=== PATIENT | female | born 1955 | race Caucasian/White ===

== ENCOUNTER 2016-06-13 14:11 | Emergency (ER) | payer OTHER ==
--- NOTE | 2016-06-13 14:58 | ED ---
Extremity Problem HPI - General Chief complaint: Extremity Problem,Nontraumatic Stated complaint: HIP Pain Time Seen by Provider: 06/13/16 14:45 Source: patient Mode of arrival: wheelchair Limitations: no limitations - History of Present Illness Initial comments: Patient is a 52-year-old female chief complaint of chronic left hip pain. Patient reports that over the past 2 weeks the pain is gotten much more severe. She denies any specific injury. She reports that she feels a grinding sensation whenever she bears weight over her leg. She states that she's had a history of osteoarthritis in her knees and received steroid injection in both of her knees by Dr. Styles. She reports that she has pain mainly over the inside of her hip and has difficulty lifting her leg due to pain. She reports no right-sided hip pain and denies any back pain. She states that she takes tramadol and Mobic for her history of fibromyalgia however this does not help with the pain. Patient reports that she was trying to follow-up with her primary care provider however she was unable to be seen by them today. He denies any peripheral paresthesias, saddle anesthesia, dysuria or hematuria or changes in bowel habits.Patient denies any recent fever, chills, shortness of breath, chest pain, back pain, abdominal pain, nausea vomiting, numbness or tingling, dysuria or hematuria, constipation or diarrhea, headaches or visual changes, or any other current symptoms - Related Data Home Medications Medication Instructions Recorded Confirmed Hydrochlorothiazide 25 mg PO DAILY 08/10/14 05/11/15 Metoprolol Tartrate [Lopressor] 25 mg PO DAILY 08/10/14 05/11/15 Previous Rx's Medication Instructions Recorded Azelastine HCl [Astepro] 2 sprays INTRANASAL BID #1 bottle 05/12/15 Diazepam [Valium] 2 mg PO QID #20 tab 05/12/15 Fluticasone Nasal [place] [Flonase 2 spr EA NOSTRIL DAILY #1 bottle 05/12/15 Nasal [place]] Levofloxacin [Levaquin] 500 mg PO DAILY #10 tab 05/12/15 Meclizine [Antivert] 25 mg PO TID PRN #20 tab 05/12/15 Ondansetron [Zofran ODT] 8 mg PO Q8HR PRN #12 tab 05/12/15 HYDROcodone/APAP 5-325MG [Brook 1 tab PO Q4HR PRN #15 tab 06/13/16 5-325] Allergies Allergy/AdvReac Type Severity Reaction Status Date / Time Penicillins Allergy Unknown Verified 06/13/16 14:35 Review of Systems ROS Statement: Those systems with pertinent positive or pertinent negative responses have been documented in the HPI. ROS Other: All systems not noted in ROS Statement are negative. Past Medical History Past Medical History: Fibromyalgia, Hypertension, Osteoarthritis (OA) Additional Past Medical History / Comment(s): joint pain History of Any Multi-Drug Resistant Organisms: None Reported Past Surgical History: Appendectomy, Cholecystectomy, Orthopedic Surgery, Tubal Ligation Past Psychological History: No Psychological Hx Reported Smoking Status: Former smoker Past Alcohol Use History: None Reported Past Drug Use History: None Reported General Exam - General Exam Comments Initial Comments: Patient is a pleasant 52-year-old female. She does not appear to be in any acute distress. Limitations: no limitations General appearance: alert, in no apparent distress Head exam: Present: atraumatic, normocephalic, normal inspection Eye exam: Present: normal appearance, PERRL, EOMI. Absent: scleral icterus, conjunctival injection, periorbital swelling ENT exam: Present: normal exam, mucous membranes moist Neck exam: Present: normal inspection. Absent: tenderness, meningismus, lymphadenopathy Respiratory exam: Present: normal lung sounds bilaterally. Absent: respiratory distress, wheezes, rales, rhonchi, stridor Cardiovascular Exam: Present: regular rate, normal rhythm, normal heart sounds. Absent: systolic murmur, diastolic murmur, rubs, gallop, clicks GI/Abdominal exam: Present: soft, normal bowel sounds. Absent: distended, tenderness, guarding, rebound, rigid Extremities exam: Present: normal inspection, full ROM, normal capillary refill. Absent: tenderness, pedal edema, joint swelling, calf tenderness Left Hip exam: Present: normal inspection. Absent: full ROM (She reports increased pain with internal rotation.), tenderness, swelling, abrasion, laceration, ecchymosis, deformity, crepitus, dislocation Upper Leg exam: Present: normal inspection, full ROM Knee exam: Present: normal inspection, full ROM Lower Leg exam: Present: normal inspection, full ROM Ankle exam: Present: normal inspection, full ROM Neurovascular tendon exam: Present: no vascular compromise Gait: observed and limited by pain Back exam: Present: normal inspection, full ROM Neurological exam: Present: alert, oriented X3, CN II-XII intact Psychiatric exam: Present: normal affect, normal mood Skin exam: Present: warm, dry, intact, normal color. Absent: rash Course Vital Signs 06/13/16 06/13/16 14:33 15:51 Temperature 98.8 F 96.8 F L Pulse Rate 83 91 Respiratory 16 18 Rate Blood Pressure 139/76 170/74 O2 Sat by Pulse 97 96 Oximetry Medical Decision Making - Medical Decision Making Patient is a 52-year-old female with chronic left hip pain presenting with increased pain over the past 2 weeks. She denies any specific injury. X-ray shows significant arthritic changes as well as a possible sclerosis over the femoral neck. Radiologist recommended a CT of the hip. CT of the hip is obtained. Patient was also given 1 IM of Dilaudid for pain. Patient's x-ray showed the possibility of having a fracture. They recommended CT. CT was completed and shows significant osteoarthritis. Patient will be instructed to take at home anti-inflammatory medication as she is 30 done. I will write the patient for 10 5 mg of Brook No. 15 to only use when pain is severe. I advised her to follow up with primary care provider tomorrow. Return parameters were discussed. They understand treatment plan will comply. - Radiology Data Radiology results: report reviewed Post arthritic changes of findings suggestive of femorial acetabular impingement. The linear band of sclerosis along the left subcapital region of the femoral neck. There is concerned of a fracture. Radiologist suggests to correlate with a computed tomography scan of the left hip. This was read by Dr. Taveras. There is marginal spurring and joint space loss, subchondral Roque formation as noted on plain film. No sizable joint effusion. Vacuum phenomenon present at the sacroiliac joint on the left. No fracture or dislocation. The impression is osteoarthritis. This was read by Dr. Freeman. Disposition Clinical Impression: Arthritis of left hip Disposition: HOME SELF-CARE Condition: Good Instructions: Osteoarthritis (ED), Hip Sprain (ED) Additional Instructions: Patient advised to rest, and ice hip is much as possible. Also apply heating pad as well. Follow-up with orthopedic physician. Return to the if any alarming signs or symptoms occur. Continue to take anti-inflammatory medication such as Mobic and tramadol for pain. Patient advised to use the other pain medication only as needed for when the pain is extremely severe. Follow-up with primary care provider is well within the next 1-2 days. Prescriptions: HYDROcodone/APAP 5-325MG [Brook 5-325] 1 tab PO Q4HR PRN #15 tab PRN Reason: Pain Referrals: Alisa Castro MD [Primary Care Provider] - 1-2 days Time of Disposition: 16:13
--- NOTE | 2016-06-13 15:15 | XR ---
EXAMINATION TYPE: XR Hip LT and AP Pelvis DATE OF EXAM: 06/13/2016 3:10 PM COMPARISON: NONE HISTORY: Pain TECHNIQUE: A single AP view of the pelvis is obtained. Two views of the left hip are obtained. FINDINGS: There is no acute fracture/dislocation evident in the pelvis. Hypertrophic change and mild narrowing of the hip joints noted. There appears to be a linear band across the subcapital region of the left femoral neck. No focal lytic or sclerotic lesion seen in the proximal left femur. The over lying soft tissue is unremarkable. IMPRESSION: 1. Post arthritic changes with findings suggestive of femoral acetabular impingement. 2. Linear band of sclerosis along the left subcapital region of the femoral neck. There is concern fo r fracture correlate with CT scan of the left hip.
[2016-06-13] MEDS ORDERED: HYDROmorphone 1 MG/ML 1 ML SYRINGE IM STA (15:22)
[2016-06-13 15:52] VITALS: BP 170/74; PULSE 91; RESP 18; TEMP 96.8
--- NOTE | 2016-06-13 16:08 | CT ---
EXAMINATION TYPE: CT hip LT wo con DATE OF EXAM: 06/13/2016 3:44 PM COMPARISON: Left hip and pelvis same date HISTORY: Left hip pain, groin region, x 3 days[address] No known injury. CT DLP: 911.00 mGycm Automated exposure control for dose reduction was used. Helical imaging through the pelvis, coronal a nd sagittal reconstructions FINDINGS: There is marginal spurring and joint space loss, subchondral geode formation as noted on plain film. No sizable joint effusion. Vacuum phenomenon present at the sacroiliac joint on the left. No fracture or dislocation. IMPRESSION: OSTEOARTHRITIS.
== END 2016-06-13 16:25 | disposition home or self-care (01) ==
LOC: EC 14:11
DX: S73.102A Unspecified sprain of left hip, initial encounter (principal); M16.12 Unilateral primary osteoarthritis, left hip; M79.7 Fibromyalgia; I10 Essential (primary) hypertension; Z87.891 Personal history of nicotine dependence; Z79.899 Other long term (current) drug therapy; Z88.0 Allergy status to penicillin; Z98.890 Other specified postprocedural states; X58.XXXA Exposure to other specified factors, initial encounter
CPT/HCPCS: 99284; 96372; 73502; 73700; J1170

== ENCOUNTER → 2016-07-05 | Outpatient (CLI) | payer OTHER ==
--- NOTE | 2016-07-05 14:33 | NM ---
EXAMINATION TYPE: NM bone/joint limited DATE OF EXAM: 07/05/2016 2:12 PM COMPARISON: NONE HISTORY: M25.552 Pain in lt hip TECHNIQUE: After the intravenous administration of 25.1 mCi Tc 99m MDP. Images acquired 3 hours pos t injection. Multiple views of the pelvis and hips are submitted. There is a small focal area of increased radiotracer accumulation left superior acetabular rim which appears degenerative in nature. There is also vague increased uptake seen about the left femoral head which may also be degenerative in nature. No additional abnormal uptake seen. Degenerative uptake se en about the lumbar spine. IMPRESSION: Probable degenerative uptake about the left hip as noted above without intense focus to s uggest fracture or osseous lesion.
== END | disposition home or self-care (01) ==
LOC: RADNMMAIN 10:38
PROVIDERS: ATTEND Orthopaedic Surgery
DX: M16.12 Unilateral primary osteoarthritis, left hip (principal)
CPT/HCPCS: 78300; A9503

== ENCOUNTER 2018-01-17 14:05 | Emergency (ER) | payer OTHER ==
[2018-01-17 14:32] VITALS: BP 140/87; PULSE 90; RESP 18; TEMP 98.5
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
== END 2018-01-17 15:14 | disposition home or self-care (01) ==
LOC: EC 14:05
DX: S96.911A Strain of unspecified muscle and tendon at ankle and foot level, right foot, initial encounter (principal); S93.401A Sprain of unspecified ligament of right ankle, initial encounter; M79.7 Fibromyalgia; I10 Essential (primary) hypertension; M19.90 Unspecified osteoarthritis, unspecified site; Z87.891 Personal history of nicotine dependence; Z79.1 Long term (current) use of non-steroidal anti-inflammatories (NSAID); Z79.899 Other long term (current) drug therapy; Z88.0 Allergy status to penicillin; W19.XXXA Unspecified fall, initial encounter; Y92.009 Unspecified place in unspecified non-institutional (private) residence as the place of occurrence of the external cause
CPT/HCPCS: 29515; 99283

== ENCOUNTER → 2018-11-25 | Outpatient (CLI) | payer OTHER ==
--- NOTE | 2018-11-26 18:22 | ECHOF ---
Referral Reason:R60.0 localized edema MEASUREMENTS -------- HEIGHT: 170.2 cm WEIGHT: 124.7 kg BP: IVSd: 1.2 cm (0.6 - 1.1) LVIDd: 4.5 cm (3.9 - 5.3) LVPWd: 1.0 cm (0.6 - 1.1) IVSs: 1.3 cm LVIDs: 3.1 cm LVPWs: 0.9 cm LA Diam: 3.2 cm (2.7 - 3.8) LAESV Index (A-L): 14.27 ml/m Ao Diam: 3.1 cm (2.0 - 3.7) AV Cusp: 2.0 cm (1.5 - 2.6) LA Diam: 4.2 cm (2.7 - 3.8) MV E Raymond: 0.53 m/s MV DecT: 239 ms MV A Raymond: 0.78 m/s MV E/A Ratio: 0.67 RAP: 5.00 mmHg RVSP: 25.78 mmHg FINDINGS -------- Sinus rhythm. This was a technically adequate study. Morbid Obesity LV size, wall thickness and systolic function are normal, with an EF greater than 55%. The left cindy tricular size is normal. The right ventricle is normal in size. The left atrial size is normal. The right atrial size is normal. The aortic valve is trileaflet, and appears structurally normal. No aortic stenosis or regurgitation. Mild mitral regurgitation is present. Mild tricuspid regurgitation present. There is no evidence of pulmonary hypertension. The right v entricular systolic pressure, as measured by Doppler, is 25.78mmHg. The pulmonic valve was not well visualized. The aortic root size is normal. There is no pericardial effusion. CONCLUSIONS -------- 1. Morbid Obesity 2. LV size, wall thickness and systolic function are normal, with an EF greater than 55%. 3. The left ventricular size is normal. 4. The right ventricle is normal in size. 5. The left atrial size is normal. 6. The right atrial size is normal. 7. The aortic valve is trileaflet, and appears structurally normal. No aortic stenosis or regurgitati on. 8. Mild mitral regurgitation is present. 9. Mild tricuspid regurgitation present. 10. There is no evidence of pulmonary hypertension. 11. The right ventricular systolic pressure, as measured by Doppler, is 25.78mmHg. 12. The pulmonic valve was not well visualized. 13. The aortic root size is normal. 14. There is no pericardial effusion. [employer]AYOUT DESIGNER: Tami Mai RDCS
== END | disposition home or self-care (01) ==
LOC: RADECHMAIN 13:55
PROVIDERS: ATTEND Physician Assistant
DX: E66.01 Morbid (severe) obesity due to excess calories (principal); I08.1 Rheumatic disorders of both mitral and tricuspid valves
CPT/HCPCS: 93306

== ENCOUNTER 2019-12-26 16:20 | Emergency (ER) | payer OTHER ==
[2019-12-26 16:41] VITALS: RESP 18
[2019-12-26] MEDS ORDERED: HYDROcodone/APAP 5-325MG 1 EACH TAB PO STA (16:51)
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
[2019-12-26] MEDS ORDERED: ACET/COD 300 MG/30 MG STARTER PACK 6 TAB BTL PO STA (17:35)
[2019-12-26 17:51] VITALS: BP 124/72; PULSE 74; TEMP 98.9
== END 2019-12-26 17:51 | disposition home or self-care (01) ==
LOC: EC 16:20
DX: Z04.1 Encounter for examination and observation following transport accident (principal); M79.7 Fibromyalgia; I10 Essential (primary) hypertension; M19.90 Unspecified osteoarthritis, unspecified site; Z88.0 Allergy status to penicillin; Z79.899 Other long term (current) drug therapy; V49.40XA Driver injured in collision with unspecified motor vehicles in traffic accident, initial encounter; Y92.410 Unspecified street and highway as the place of occurrence of the external cause; Y93.89 Activity, other specified
CPT/HCPCS: 70450; 72125; 99284

== ENCOUNTER 2020-10-06 06:22 | Emergency (ER) | payer OTHER ==
[2020-10-06 06:31] VITALS: TEMP 97.9
[2020-10-06] MEDS ORDERED: LORazepam 2 MG/ML INJ IV STA (06:54)
[2020-10-06] MEDS ORDERED: methylPREDNISolone SOD SUCCI 125 MG/2 ML VIAL IV STA (06:54)
[2020-10-06] MEDS ORDERED: IPRATROPIUM-ALBUTEROL 3 ML NEB INHALATION STA (06:54)
--- NOTE | 2020-10-06 07:01 | ED ---
General Adult HPI - General Chief complaint: Shortness of Breath Stated complaint: DEL Time Seen by Provider: 10/06/20 06:34 Source: patient, RN notes reviewed Mode of arrival: wheelchair Limitations: no limitations - History of Present Illness Initial comments: 65-year-old female with a past medical history of hypertension, fibromyalgia presents to the emergency room for shortness of breath. Patient reports over the past 3 days or so she has had worsening shortness of breath. States this started overall about 8 months ago when she was anxious with bronchitis. Patient does have a remote smoking history. Patient states over the past 3 days it has worsened. It seems to worsen when she is lying flat. She does admit to a cough but states it is unchanged for the past 8 months. She denies fevers. Denies chest pain.Patient has no other complaints at this time including chest pain, abdominal pain, nausea or vomiting, headache, or visual changes. - Related Data Home Medications Medication Instructions Recorded Confirmed Albuterol Inhaler (Mhu) [Ventolin 2 puff INHALATION RT-Q6H PRN 01/17/18 10/23/18 Hfa Inhaler] Ergocalciferol (Vitamin D2) 50,000 unit PO WE 01/17/18 10/23/18 [Vitamin D2] Levothyroxine Sodium [Synthroid] 75 mcg PO HS 01/17/18 10/23/18 Naproxen Sodium [Aleve] 440 mg PO HS PRN 01/17/18 10/23/18 amLODIPine [Norvasc] 10 mg PO HS 01/17/18 10/23/18 Fluticasone Nasal [place] [Flonase 2 spr EA NOSTRIL HS 10/23/18 10/23/18 Nasal [place]] Metoprolol Tartrate [Lopressor] 50 mg PO HS 10/23/18 10/23/18 hydroCHLOROthiazide [Hydrodiuril] 50 mg PO HS 10/23/18 10/23/18 Previous Rx's Medication Instructions Recorded Doxycycline Hyclate 100 mg PO BID 7 Days #14 tab 06/22/19 predniSONE [Deltasone] 60 mg PO DAILY #5 tab 06/22/19 predniSONE 50 mg PO DAILY #5 tablet 10/06/20 Allergies Allergy/AdvReac Type Severity Reaction Status Date / Time Penicillins Allergy Unknown Verified 10/06/20 06:28 Childhood Review of Systems ROS Statement: Those systems with pertinent positive or pertinent negative responses have been documented in the HPI. ROS Other: All systems not noted in ROS Statement are negative. Past Medical History Past Medical History: Fibromyalgia, Hypertension, Osteoarthritis (OA) Additional Past Medical History / Comment(s): joint pain History of Any Multi-Drug Resistant Organisms: None Reported Past Surgical History: Appendectomy, Cholecystectomy, Orthopedic Surgery, Tubal Ligation Past Psychological History: Anxiety Smoking Status: Never smoker Past Alcohol Use History: None Reported Past Drug Use History: None Reported General Exam Limitations: no limitations General appearance: alert, in no apparent distress Head exam: Present: atraumatic, normocephalic, normal inspection Eye exam: Present: normal appearance, PERRL, EOMI. Absent: scleral icterus, conjunctival injection, periorbital swelling ENT exam: Present: normal exam, mucous membranes moist Neck exam: Present: normal inspection, full ROM. Absent: tenderness, meningismus, lymphadenopathy Respiratory exam: Present: wheezes (Wheeze right lung base). Absent: respiratory distress, rales, rhonchi, stridor Cardiovascular Exam: Present: regular rate, normal rhythm, normal heart sounds. Absent: systolic murmur, diastolic murmur, rubs, gallop, clicks GI/Abdominal exam: Present: soft, normal bowel sounds. Absent: distended, tenderness, guarding, rebound, rigid Course Vital Signs 10/06/20 10/06/20 10/06/20 06:28 07:12 07:27 Temperature 97.9 F Pulse Rate 92 84 Respiratory 22 18 Rate Blood Pressure 156/95 O2 Sat by Pulse 96 Oximetry 10/06/20 10/06/20 07:34 08:54 Temperature Pulse Rate 80 90 Respiratory 18 Rate Blood Pressure 141/81 O2 Sat by Pulse 97 Oximetry EKG Findings - EKG Comments: EKG Findings:: Normal sinus rhythm, ventricular rate 82, ME interval 156, QTC 439 Medical Decision Making - Medical Decision Making Vitals are stable. Initially patient was very anxious and felt that she had had a panic attack. EKG was nonischemic. Laboratory evaluation was initiated. CBC was unremarkable. Magnesium was low at 1.3, this was replaced. Troponin negative. BNP 208. Coronavirus not detected. Chest x-ray showed no acute process. D-dimer was mildly elevated and therefore CT of the chest was ordered which showed no acute pulmonary embolism. Patient reevaluated and did feel much better after DuoNeb and Ativan. Given she does have wheezing in the right lung we will treat her with steroids and she will continue her breathing treatments over the next several days. She will follow-up with her doctor. She will return for any worsening symptoms. - Lab Data Result diagrams: 10/06/20 07:03 10/06/20 07:03 Lab Results 10/06/20 10/06/20 10/06/20 Range/Units 07:03 07:03 07:03 WBC 9.4 (3.8-10.6) k/uL RBC 4.39 (3.80-5.40) m/uL Hgb 14.5 (11.4-16.0) gm/dL Hct 42.1 (34.0-46.0) % MCV 96.1 (80.0-100.0) fL MCH 33.1 (25.0-35.0) pg MCHC 34.5 (31.0-37.0) g/dL RDW 12.9 (11.5-15.5) % Plt Count 280 (150-450) k/uL MPV 8.4 Neutrophils % 49 % Lymphocytes % 28 % Monocytes % 7 % Eosinophils % 14 % Basophils % 1 % Neutrophils # 4.6 (1.3-7.7) k/uL Lymphocytes # 2.6 (1.0-4.8) k/uL Monocytes # 0.6 (0-1.0) k/uL Eosinophils # 1.3 H (0-0.7) k/uL Basophils # 0.1 (0-0.2) k/uL PT 10.6 (9.0-12.0) sec INR 1.0 (<1.2) APTT 22.5 (22.0-30.0) sec D-Dimer 0.74 H (<0.60) mg/L FEU Sodium 141 (137-145) mmol/L Potassium 3.6 (3.5-5.1) mmol/L Chloride 107 (98-107) mmol/L Carbon Dioxide 28 (22-30) mmol/L Anion Gap 6 mmol/L BUN 8 (7-17) mg/dL Creatinine 0.74 (0.52-1.04) mg/dL Est GFR (CKD-EPI)AfAm >90 (>60 ml/min/1.73 sqM) Est GFR (CKD-EPI)NonAf 87 (>60 ml/min/1.73 sqM) Glucose 104 H (74-99) mg/dL Calcium 9.0 (8.4-10.2) mg/dL Magnesium 1.3 L (1.6-2.3) mg/dL Total Bilirubin 1.2 (0.2-1.3) mg/dL AST 28 (14-36) U/L ALT 21 (4-34) U/L Alkaline Phosphatase 97 (38-126) U/L Troponin I (0.000-0.034) ng/mL NT-Pro-B Natriuret Pep pg/mL Total Protein 6.3 (6.3-8.2) g/dL Albumin 3.8 (3.5-5.0) g/dL Coronavirus (PCR) (Not Detectd) 10/06/20 10/06/20 10/06/20 Range/Units 07:03 07:03 07:03 WBC (3.8-10.6) k/uL RBC (3.80-5.40) m/uL Hgb (11.4-16.0) gm/dL Hct (34.0-46.0) % MCV (80.0-100.0) fL MCH (25.0-35.0) pg MCHC (31.0-37.0) g/dL RDW (11.5-15.5) % Plt Count (150-450) k/uL MPV Neutrophils % % Lymphocytes % % Monocytes % % Eosinophils % % Basophils % % Neutrophils # (1.3-7.7) k/uL Lymphocytes # (1.0-4.8) k/uL Monocytes # (0-1.0) k/uL Eosinophils # (0-0.7) k/uL Basophils # (0-0.2) k/uL PT (9.0-12.0) sec INR (<1.2) APTT (22.0-30.0) sec D-Dimer (<0.60) mg/L FEU Sodium (137-145) mmol/L Potassium (3.5-5.1) mmol/L Chloride (98-107) mmol/L Carbon Dioxide (22-30) mmol/L Anion Gap mmol/L BUN (7-17) mg/dL Creatinine (0.52-1.04) mg/dL Est GFR (CKD-EPI)AfAm (>60 ml/min/1.73 sqM) Est GFR (CKD-EPI)NonAf (>60 ml/min/1.73 sqM) Glucose (74-99) mg/dL Calcium (8.4-10.2) mg/dL Magnesium (1.6-2.3) mg/dL Total Bilirubin (0.2-1.3) mg/dL AST (14-36) U/L ALT (4-34) U/L Alkaline Phosphatase (38-126) U/L Troponin I <0.012 (0.000-0.034) ng/mL NT-Pro-B Natriuret Pep 208 pg/mL Total Protein (6.3-8.2) g/dL Albumin (3.5-5.0) g/dL Coronavirus (PCR) Not Detected (Not Detectd) Disposition Clinical Impression: Shortness of breath, Wheezing on exhalation, Bronchitis Disposition: HOME SELF-CARE Condition: Good Instructions (If sedation given, give patient instructions): Acute Bronchitis (ED) Additional Instructions: Please take medications as directed. Please follow-up with your doctor in one to 2 days. Return to the emergency room for any worsening symptoms. Prescriptions: predniSONE 50 mg PO DAILY #5 tablet Is patient prescribed a controlled substance at d/c from ED?: No Referrals: Danyel Washburn MD [Primary Care Provider] - 1-2 days Time of Disposition: 09:38
[2020-10-06 07:15] VITALS: RESP 18
--- NOTE | 2020-10-06 07:22 | XR ---
EXAMINATION TYPE: XR chest 2V DATE OF EXAM: 10/06/2020 COMPARISON: Chest x-ray June 22, 2019 HISTORY: Difficulty breathing. TECHNIQUE: Frontal and lateral views of the chest are obtained. FINDINGS: There is mild chronic parenchymal changes without suspicious new focal air space opacity, pleural effusion, or pneumothorax seen. The cardiac silhouette size is stable and within normal limi ts. The osseous structures are intact. Overlying EKG leads are in current study. IMPRESSION: No acute cardiopulmonary process. No significant change from prior.
[2020-10-06 07:26] LABS: Basophils # (A) 0.1 k/uL (0-0.2); Basophils % (A) 1 %; Eosinophils # (A) 1.3 k/uL (0-0.7); Eosinophils % (A) 14 %; HCT 42.1 % (34.0-46.0); HGB 14.5 gm/dL (11.4-16.0); Lymphocytes # (A) 2.6 k/uL (1.0-4.8); Lymphocytes % (A) 28 %; MCH 33.1 pg (25.0-35.0); MCHC 34.5 g/dL (31.0-37.0); MCV 96.1 fL (80.0-100.0); Mean Platelet Volume 8.4; Monocytes # (A) 0.6 k/uL (0-1.0); Monocytes % (A) 7 %; Neutrophils # (A) 4.6 k/uL (1.3-7.7); Neutrophils % (A) 49 %; Platelet Count 280 k/uL (150-450); RBC 4.39 m/uL (3.80-5.40); RDW 12.9 % (11.5-15.5); WBC 9.4 k/uL (3.8-10.6)
[2020-10-06 07:36] LABS: Partial Thromboplastin Time 22.5 sec (22.0-30.0); Prothrombin Time 10.6 sec (9.0-12.0)
[2020-10-06 07:50] LABS: ALT 21 U/L (4-34); AST 28 U/L (14-36); African American GFR (CKD) >90 (>60 ml/min/1.73 sqM); Albumin 3.8 g/dL (3.5-5.0); Alkaline Phosphatase 97 U/L (38-126); Anion Gap 6 mmol/L; Blood Urea Nitrogen 8 mg/dL (7-17); Carbon Dioxide 28 mmol/L (22-30); Chloride 107 mmol/L (98-107); Glucose 104 mg/dL (74-99); Magnesium 1.3 mg/dL (1.6-2.3); Non-African American GFR(CKD) 87 (>60 ml/min/1.73 sqM); Potassium 3.6 mmol/L (3.5-5.1); Sodium 141 mmol/L (137-145); Total Bilirubin 1.2 mg/dL (0.2-1.3); Total Protein 6.3 g/dL (6.3-8.2)
[2020-10-06] MEDS ORDERED: MAGNESIUM OXIDE 400 MG TAB PO STA (07:53)
--- NOTE | 2020-10-06 09:25 | CT ---
CT CHEST FOR PULMONARY EMBOLISM. EXAMINATION TYPE: CT chest angio for PE DATE OF EXAM: 10/06/2020 INDICATION: DEL, SOB, elevated Ddimer CT DLP: 731.4 mGycm, Automated exposure control for dose reduction was used. CONTRAST: Patient injected with 90 mL of Isovue 370. COMPARISON: None TECHNIQUE: CT of the chest is performed on a spiral scan at 2 mm thick sections. Study is performed with intravenous contrast timed for evaluation for pulmonary embolism. This will limit additional po rtions of the evaluation. 3-D MIP images reconstructed by the technologist are reviewed on the compu ter in the coronal and sagittal planes. FINDINGS: No persistent filling defects are evident to suggest an acute pulmonary embolism. Small contrast mixi ng defect appears to be within the right hilar region vascular structure extending towards the left a trium. Series 401, image 50. No mediastinal or hilar adenopathy enlarged by CT criteria is evident. The ascending aorta diameter at the level of the main pulmonary artery is 2.9 cm. The main pulmonary artery diameter at the bifur cation is 2.7 cm. Lung windows are clear. Limited CT section through the upper abdomen are unremarkable. IMPRESSIONS: 1. No acute pulmonary embolism. 2. No acute pulmonary process.
[2020-10-06 10:09] VITALS: BP 120/70; PULSE 96
== END 2020-10-06 10:07 | disposition home or self-care (01) ==
LOC: EC 06:22
DX: J40 Bronchitis, not specified as acute or chronic (principal); R06.2 Wheezing; M79.7 Fibromyalgia; I10 Essential (primary) hypertension; M19.90 Unspecified osteoarthritis, unspecified site; Z90.89 Acquired absence of other organs; Z90.49 Acquired absence of other specified parts of digestive tract; Z98.51 Tubal ligation status
CPT/HCPCS: 36415; 94640; 93005; 85379; 83880; 80053; 83735; 84484; 85025; 85610; 85730; 87635; 71046; 71275; 99285; 96374; 96375; J2060; J2930; Q9967

== ENCOUNTER 2020-12-23 14:17 | Emergency (ER) | payer OTHER ==
[2020-12-23 14:23] VITALS: BP 130/82; RESP 19; TEMP 98
[2020-12-23] MEDS ORDERED: predniSONE 20 MG TAB PO STA (15:12)
[2020-12-23] MEDS ORDERED: IPRATROPIUM-ALBUTEROL 3 ML NEB INHALATION STA (15:12)
--- NOTE | 2020-12-23 16:04 | XR ---
EXAMINATION TYPE: XR chest 2V DATE OF EXAM: 12/23/2020 COMPARISON: 10/06/2020 HISTORY: 65-year-old female with cough TECHNIQUE: PA and lateral views FINDINGS: Heart normal size. Aorta and pulmonary vasculature within normal limits. Mild interstitial density is unchanged. There is some focal opacity at the left base. No pleural effusion. IMPRESSION: Chronic changes but with focal left basilar opacity that could represent atelectasis or an early pneu monia.
[2020-12-23 16:20] VITALS: PULSE 104
[2020-12-23] MEDS ORDERED: cefTRIAXone 1,000 MG VIAL (IM USE) IM STA (16:30)
--- NOTE | 2020-12-23 16:31 | ED ---
General Adult HPI - General Chief complaint: Upper Respiratory Infection Stated complaint: bronchitis Time Seen by Provider: 12/23/20 14:31 Source: patient Mode of arrival: wheelchair Limitations: no limitations - History of Present Illness Initial comments: 65-year-old female presenting to the emergency department with chief complaint of cough and congestion. Patient reports symptoms of an eyebrow for approximately to 3 days. Reports some sinus congestion and has difficulty sleeping at night due to to it as well. Denies any sore throat but does report occasional otalgia. Reports clear bilateral rhinorrhea as well. He reports a productive cough that is usually worse at night with wheezing. She denies any significant shortness of breath or chest pain. Denies any fevers or chills at home. She is not a smoker. No history of asthma. - Related Data Home Medications Medication Instructions Recorded Confirmed Levothyroxine Sodium [Synthroid] 75 mcg PO DAILY 01/17/18 12/23/20 amLODIPine [Norvasc] 10 mg PO DAILY 01/17/18 12/23/20 Metoprolol Tartrate [Lopressor] 50 mg PO DAILY 10/23/18 12/23/20 hydroCHLOROthiazide [Hydrodiuril] 50 mg PO Q48H 10/23/18 12/23/20 Acetaminophen-Codeine 300-30mg 1 tab PO Q6H PRN 12/23/20 12/23/20 [Tylenol w/codeine #3] Albuterol Nebulized [Ventolin 2.5 mg INHALATION RT-QID 12/23/20 12/23/20 Nebulized] Albuterol Sulfate [Proair Hfa] 2 puff INHALATION RT-Q4H PRN 12/23/20 12/23/20 Fluticasone Propionate [Flovent 1 puff INHALATION RT-BID 12/23/20 12/23/20 Hfa 110 mcg] LORazepam [Ativan] 0.5 mg PO BID PRN 12/23/20 12/23/20 Omeprazole 20 mg PO DAILY 12/23/20 12/23/20 Previous Rx's Medication Instructions Recorded Azithromycin [Zithromax Z-pack (6 0 mg PO DIRECTED #1 pack 12/23/20 tabs)] Allergies Allergy/AdvReac Type Severity Reaction Status Date / Time Penicillins Allergy Unknown Verified 12/23/20 15:40 Childhood Review of Systems ROS Statement: Those systems with pertinent positive or pertinent negative responses have been documented in the HPI. ROS Other: All systems not noted in ROS Statement are negative. Past Medical History Past Medical History: Fibromyalgia, Hypertension, Osteoarthritis (OA) Additional Past Medical History / Comment(s): joint pain History of Any Multi-Drug Resistant Organisms: None Reported Past Surgical History: Appendectomy, Cholecystectomy, Orthopedic Surgery, Tubal Ligation Past Psychological History: Anxiety Smoking Status: Never smoker Past Alcohol Use History: None Reported Past Drug Use History: None Reported General Exam Limitations: no limitations General appearance: alert, in no apparent distress, obese Head exam: Present: atraumatic, normocephalic, normal inspection Eye exam: Present: normal appearance, PERRL, EOMI Pupils: Present: normal accommodation ENT exam: Present: normal exam, normal oropharynx, mucous membranes moist, TM's normal bilaterally, normal external ear exam Neck exam: Present: normal inspection, full ROM. Absent: tenderness, lymphadenopathy Respiratory exam: Present: normal lung sounds bilaterally, wheezes (mild diffuse wheezing, bilaterally.). Absent: respiratory distress, rales, rhonchi, stridor, chest wall tenderness, accessory muscle use Cardiovascular Exam: Present: regular rate, normal rhythm, normal heart sounds. Absent: systolic murmur Extremities exam: Present: normal inspection, full ROM. Absent: tenderness Back exam: Present: normal inspection, full ROM. Absent: tenderness Neurological exam: Present: alert, oriented X3 Psychiatric exam: Present: normal affect, normal mood Skin exam: Present: warm, dry, intact, normal color Course Vital Signs 12/23/20 12/23/20 12/23/20 14:19 16:09 16:19 Temperature 98.0 F Pulse Rate 104 H 100 104 H Respiratory 19 Rate Blood Pressure 130/82 O2 Sat by Pulse 94 L Oximetry Medical Decision Making - Medical Decision Making 65-year-old female presenting to emergency with a chief complaint of cough and congestion. On physical examination, diffuse bilateral wheezing. I did give her a breathing treatment and steroids here. Covid was negative. Chest x-ray reveals no developing pneumonia in the left lung base. I will start the patient 1 g Rocephin IM here. We'll discharge her with a Z-[place]. Advised to continue the nebulized albuterol treatments at home. Advised to return to emergency department if symptoms worsen. Return parameters were thoroughly discussed the patient was understanding and agreeable. She is otherwise well-appearing and feels comfortable going home. Case discussed with physician. - Lab Data Lab Results 12/23/20 Range/Units 14:56 Coronavirus (PCR) Not Detected (Not Detectd) Disposition Clinical Impression: Pneumonia Disposition: HOME SELF-CARE Condition: Stable Instructions (If sedation given, give patient instructions): Community Acquired Pneumonia (DC) Additional Instructions: Take prescribed medication as directed. Follow up with her primary care physician. Return to emergency department if symptoms worsen. Prescriptions: Azithromycin [Zithromax Z-pack (6 tabs)] 0 mg PO DIRECTED #1 pack Is patient prescribed a controlled substance at d/c from ED?: No Referrals: Danyel Washburn MD [Primary Care Provider] - 1-2 days Time of Disposition: 16:35
== END 2020-12-23 17:03 | disposition home or self-care (01) ==
LOC: EC 14:17
DX: J18.9 Pneumonia, unspecified organism (principal); H92.09 Otalgia, unspecified ear; I10 Essential (primary) hypertension; M79.7 Fibromyalgia; M19.90 Unspecified osteoarthritis, unspecified site; F41.9 Anxiety disorder, unspecified; Z20.822 Contact with and (suspected) exposure to COVID-19; Z79.51 Long term (current) use of inhaled steroids; Z88.0 Allergy status to penicillin
CPT/HCPCS: 94640; 87635; 71046; 99285; 96372; J0696; J7512

== ENCOUNTER → 2021-08-23 | Outpatient (CLI) | payer OTHER | END | disposition home or self-care (01) | LOC: LABWHC1 16:21 | PROVIDERS: ATTEND Registered Nurse | DX: J45.909 Unspecified asthma, uncomplicated (principal); R73.09 Other abnormal glucose | CPT/HCPCS: 36415; 82785; 83036; 86003 ==

== ENCOUNTER → 2021-08-23 | Outpatient (CLI) | payer OTHER ==
--- NOTE | 2021-08-23 19:25 | XR ---
EXAMINATION TYPE: XR ankle complete RT DATE OF EXAM: 08/23/2021 CLINICAL HISTORY: Medial ankle pain since injury 5 months ago. TECHNIQUE: Frontal, lateral and oblique images of the right ankle are obtained. COMPARISON: Right ankle x-ray January 17, 2018 FINDINGS: Persistent 7 mm well-corticated fragment from the medial malleolus could reflect product of old avulsion type fracture. There is no acute fracture/dislocation evident in the right ankle. The ankle mortise appears within normal limits. Incidental moderate to large sized superior and inferior calcaneal spurs are redemonstrated. The overlying soft tissue shows mild diffuse subcutaneous edema. IMPRESSION: As above. No significant change from prior.
== END | disposition home or self-care (01) ==
LOC: RADXRMAIN 16:55
PROVIDERS: ATTEND Family Medicine
DX: M77.31 Calcaneal spur, right foot (principal)

== ENCOUNTER 2022-04-07 15:28 | Emergency (ER) | payer OTHER ==
[2022-04-07 16:20] VITALS: TEMP 97
--- NOTE | 2022-04-07 16:36 | XR ---
EXAMINATION TYPE: XR ankle complete RT DATE OF EXAM: 04/07/2022 4:31 PM INDICATION: Patient age:Female; 66 years old; Reason for study: pain swelling; COMPARISON: 08/23/2021 TECHNIQUE: The right ankle is imaged in frontal, lateral and oblique projections. FINDINGS: There is no evidence of acute osseous pathology. The joint spaces are well-preserved without evidenc e of subluxation or dislocation. Kager's fat pad is intact. Mild soft tissue swelling around the ankl e. No radiopaque foreign bodies are identified. Calcaneal plantar spurring and Achilles enthesophyte. Opacification within the Achilles tendon remote injury to the medial malleolus suggested. IMPRESSION: 1. No evidence of acute fracture. 2. Subcutaneous swelling around the ankle ..
[2022-04-07] MEDS ORDERED: dexAMETHasone 4 MG TAB PO STA (17:27)
--- NOTE | 2022-04-07 17:28 | ED ---
General Adult HPI - General Chief complaint: Extremity Injury, Lower Stated complaint: rt ankle injury Time Seen by Provider: 04/07/22 17:15 Source: patient, RN notes reviewed, old records reviewed Mode of arrival: wheelchair Limitations: no limitations - History of Present Illness Initial comments: Patient is a 66-year-old female with past medical history remarkable for chronic right ankle pain, who presents emergency Department after stepping on and injuring her right ankle. Patient states that she was walking at the store, when she put weight on her right ankle earlier today and it causes some pain. This somewhat chronic, she states it is been on again off again for the last 4 months. This pain with weightbearing. Normally does ambulate with a walker at home. Presents for further evaluation of this time. Has not followed up with her PCP regarding this. He wants to ensure it is not broken. His no other acute complaints or injuries at this time. Denies falling. - Related Data Home Medications Medication Instructions Recorded Confirmed Levothyroxine Sodium [Synthroid] 75 mcg PO DAILY 01/17/18 12/23/20 amLODIPine [Norvasc] 10 mg PO DAILY 01/17/18 12/23/20 Metoprolol Tartrate [Lopressor] 50 mg PO DAILY 10/23/18 12/23/20 hydroCHLOROthiazide [Hydrodiuril] 50 mg PO Q48H 10/23/18 12/23/20 Acetaminophen-Codeine 300-30mg 1 tab PO Q6H PRN 12/23/20 12/23/20 [Tylenol w/codeine #3] Albuterol Nebulized [Ventolin 2.5 mg INHALATION RT-QID 12/23/20 12/23/20 Nebulized] Albuterol Sulfate [Proair Hfa] 2 puff INHALATION RT-Q4H PRN 12/23/20 12/23/20 Fluticasone Propionate [Flovent 1 puff INHALATION RT-BID 12/23/20 12/23/20 Hfa 110 mcg] LORazepam [Ativan] 0.5 mg PO BID PRN 12/23/20 12/23/20 Omeprazole 20 mg PO DAILY 12/23/20 12/23/20 Previous Rx's Medication Instructions Recorded Azithromycin [Zithromax Z-pack (6 0 mg PO DIRECTED #1 pack 12/23/20 tabs)] Allergies Allergy/AdvReac Type Severity Reaction Status Date / Time Penicillins Allergy Unknown Verified 12/23/20 15:40 Childhood Review of Systems ROS Statement: Those systems with pertinent positive or pertinent negative responses have been documented in the HPI. Review of Systems: CONST: Denies fever EYES: Denies blurry vision ENT: Denies nasal congestion C/V: Denies Chest pain RESP: Denies shortness of breath GI: Denies abdominal pain : Denies dysuria SKIN: Denies rash. MSK: Endorses right ankle pain NEURO: Denies headache ROS Other: All systems not noted in ROS Statement are negative. Past Medical History Past Medical History: Fibromyalgia, Hypertension, Osteoarthritis (OA) Additional Past Medical History / Comment(s): joint pain History of Any Multi-Drug Resistant Organisms: None Reported Past Surgical History: Appendectomy, Cholecystectomy, Orthopedic Surgery, Tubal Ligation Past Psychological History: Anxiety Smoking Status: Never smoker Past Alcohol Use History: None Reported Past Drug Use History: None Reported General Exam - General Exam Comments Initial Comments: General: Appears in no acute distress. HEAD: Normal with no signs of head trauma. EYES: EOMI. ENT: Hearing grossly intact. RESPIRATORY: No respiratory distress. C/V: Peripheral pulses 2+ intact throughout. ABD: Nondistended EXT: Normal range of motion. No obvious deformity. Mild edema of the medial and lateral malleolus of the right ankle. No skin changes. No warmth. Tender to palpation. SKIN: No rashes or lesions observed on exposed skin. NEURO: Alert and oriented 4. No focal deficits. Neurovascularly intact in the right lower extremity. Limitations: no limitations Course Vital Signs 04/07/22 04/07/22 16:17 17:40 Temperature 97 F L Pulse Rate 86 77 Respiratory 16 18 Rate Blood Pressure 153/83 132/74 O2 Sat by Pulse 97 98 Oximetry Medical Decision Making - Medical Decision Making Based on the patient's presentation and physical exam, she does continue enough chronic right ankle pain with acute exacerbation. No obvious deformities or injuries at this time. X-ray was obtained while the patient was in triage of the right ankle. X-rays interpreted by myself reveals no evidence of traumatic injury, fracture, subluxation of the right ankle. Radiology read corroborates this. I did discuss the results with the patient. Vital signs are within acceptable limits. As this appears to be chronic in nature, we did discuss following up with orthopedics may be best. She was in agreement. I will provide her with contact information. She'll follow-up with her PCP. She already has a walker at home and declines crutches. We discussed rest, ice, elevation. She'll be given a dose of steroid prior to discharge. She will use [id number] analgesic medications at home for pain control. She was in agreement this plan. I instructed the patient to follow up with their PCP in the next 1-3 days. I explained that the patient should return to the emergency department if they experience any worsening symptoms. Strict return precautions were discussed with the patient. The patient expressed understanding of these instructions. I answered all questions that the patient had. The patient was discharged home in good condition with their prescriptions and follow up information. Disposition Clinical Impression: Right ankle sprain Disposition: HOME SELF-CARE Condition: Good Instructions (If sedation given, give patient instructions): Ankle Sprain (ED) Is patient prescribed a controlled substance at d/c from ED?: No Referrals: Danyel Washburn MD [Primary Care Provider] - 1-2 days Farshad Gomez DO [Doctor of Osteopathic Medicine] - 1-2 days Time of Disposition: 17:25
[2022-04-07 17:42] VITALS: BP 132/74; PULSE 77; RESP 18
== END 2022-04-07 17:43 | disposition home or self-care (01) ==
LOC: EC 15:28
DX: S93.401A Sprain of unspecified ligament of right ankle, initial encounter (principal); I10 Essential (primary) hypertension; M19.90 Unspecified osteoarthritis, unspecified site; F41.9 Anxiety disorder, unspecified; Z88.0 Allergy status to penicillin; Z79.899 Other long term (current) drug therapy; X50.0XXA Overexertion from strenuous movement or load, initial encounter
CPT/HCPCS: 73610; 99283; J8540

== ENCOUNTER 2023-05-23 11:40 | Emergency (ER) | payer MEDICARE, OTHER ==
[2023-05-23 12:27] VITALS: BP 127/87; PULSE 93; RESP 16; TEMP 98
[2023-05-23 12:43] LABS: Appearance,Urine Cloudy (Clear); Bacteria,Urine Rare /hpf; Bilirubin,Urine Negative (Negative); Blood,Urine Negative (Negative); Calcium Oxalate Crystals,Urine Many /hpf; Color,Urine Yellow; Glucose,Urine (UA) Negative (Negative); Hyaline Casts,Urine 4 /lpf (0-2); Ketones,Urine Negative (Negative); Leukocyte Esterase,Urine Negative (Negative); Mucus,Urine Many /hpf; Nitrite,Urine Negative (Negative); PH, Urine 5.5 (5.0-8.0); Protein,Urine Trace (Negative); Specific Gravity,Urine 1.029 (1.001-1.035); Squamous Epithelial Cell,Urine 3 /hpf (0-4); Urobilinogen,Urine <2.0 mg/dL (<2.0)
--- NOTE | 2023-05-23 13:15 | ED ---
General Adult HPI - General Chief complaint: Urogenital Stated complaint: poss UTI,Weakness,Nausea Time Seen by Provider: 05/23/23 12:57 Source: patient, RN notes reviewed, old records reviewed Mode of arrival: wheelchair Limitations: no limitations - History of Present Illness Initial comments: 67-year-old female presenting with dysuria and urinary frequency. No fever. She has had some nausea without vomiting. Had recent urinary tract infection and was treated with ciprofloxacin. - Related Data Home Medications Medication Instructions Recorded Confirmed Levothyroxine Sodium [Synthroid] 75 mcg PO DAILY 01/17/18 12/23/20 amLODIPine [Norvasc] 10 mg PO DAILY 01/17/18 12/23/20 Metoprolol Tartrate [Lopressor] 50 mg PO DAILY 10/23/18 12/23/20 hydroCHLOROthiazide [Hydrodiuril] 50 mg PO Q48H 10/23/18 12/23/20 Acetaminophen-Codeine 300-30mg 1 tab PO Q6H PRN 12/23/20 12/23/20 [Tylenol w/codeine #3] Albuterol Nebulized [Ventolin 2.5 mg INHALATION RT-QID 12/23/20 12/23/20 Nebulized] Albuterol Sulfate [Proair Hfa] 2 puff INHALATION RT-Q4H PRN 12/23/20 12/23/20 Fluticasone Propionate [Flovent 1 puff INHALATION RT-BID 12/23/20 12/23/20 Hfa 110 mcg] LORazepam [Ativan] 0.5 mg PO BID PRN 12/23/20 12/23/20 Omeprazole 20 mg PO DAILY 12/23/20 12/23/20 Previous Rx's Medication Instructions Recorded Azithromycin [Zithromax Z-pack (6 0 mg PO DIRECTED #1 pack 12/23/20 tabs)] Allergies Allergy/AdvReac Type Severity Reaction Status Date / Time Penicillins Allergy Unknown Verified 05/23/23 12:21 Childhood Review of Systems ROS Statement: Those systems with pertinent positive or pertinent negative responses have been documented in the HPI. ROS Other: All systems not noted in ROS Statement are negative. Past Medical History Past Medical History: Asthma, Fibromyalgia, Hypertension, Osteoarthritis (OA) Additional Past Medical History / Comment(s): joint pain History of Any Multi-Drug Resistant Organisms: None Reported Past Surgical History: Appendectomy, Cholecystectomy, Orthopedic Surgery, Tubal Ligation Past Psychological History: Anxiety Smoking Status: Never smoker Past Alcohol Use History: None Reported Past Drug Use History: None Reported General Exam Limitations: no limitations General appearance: alert, in no apparent distress Head exam: Present: atraumatic, normocephalic Eye exam: Present: normal appearance, PERRL ENT exam: Present: normal exam Neck exam: Present: normal inspection. Absent: tenderness, meningismus Respiratory exam: Present: normal lung sounds bilaterally. Absent: respiratory distress Cardiovascular Exam: Present: regular rate, normal rhythm GI/Abdominal exam: Present: soft. Absent: distended, tenderness, guarding Extremities exam: Present: normal inspection, normal capillary refill Neurological exam: Present: alert, oriented X3, CN II-XII intact. Absent: motor sensory deficit Psychiatric exam: Present: normal affect, normal mood Skin exam: Present: warm, dry, intact. Absent: cyanosis, diaphoretic Course Vital Signs 05/23/23 12:19 Temperature 98.0 F Pulse Rate 93 Respiratory 16 Rate Blood Pressure 127/87 O2 Sat by Pulse 98 Oximetry Medical Decision Making - Medical Decision Making Was pt. sent in by a medical professional or institution (, PA, CLOTHES PRESSER, urgent care, hospital, or custodial...) When possible be specific @ -No Did you speak to anyone other than the patient for history (EMS, parent, family, police, friend...)? What history was obtained from this source @ -No Did you review nursing and triage notes (agree or disagree)? Why? @ -I reviewed and agree with nursing and triage notes Were old charts reviewed (outside hosp., previous admission, EMS record, old EKG, old radiological studies, urgent care reports/EKG's, custodial records)? Report findings @ -No old charts were reviewed Differential Diagnosis (chest pain, altered mental status, abdominal pain women, abdominal pain men, vaginal bleeding, weakness, fever, dyspnea, syncope, headache, dizziness, GI bleed, back pain, seizure, CVA, palpatations, mental health, musculoskeletal)? @Differential Abdominal Pain Women: Appendicitis, Cholecystitis, diverticulosis, ischemic bowel, pancreatitis, hepatitis, UTI, gastroenteritis, AAA, incarcerated hernia, bowel obstruction, constipation, inflammatory bowel, hepatitis, peptic ulcer disease, splenic infarction, perforated viscus, vulvitis, ovarian torsion, PID, kidney stone, placenta abruption, this is not meant to be an all-inclusive list EKG interpreted by me (3pts min.). @ -As above X-rays interpreted by me (1pt min.). @ -None done CT interpreted by me (1pt min.). @ -None done U/S interpreted by me (1pt. min.). @ -None done What testing was considered but not performed or refused? (CT, X-rays, U/S, labs)? Why? @ -None What meds were considered but not given or refused? Why? @ -None Did you discuss the management of the patient with other professionals (professionals i.e. , PA, CLOTHES PRESSER, lab, RT, psych nurse, nephrology social worker, dictionary editor, teacher, branch lending officer, senior case manager)? Give summary @ -No Was smoking cessation discussed for >3mins.? @ -No Was critical care preformed (if so, how long)? @ -No Were there social determinants of health that impacted care today? How? (Homelessness, low income, unemployed, alcoholism, drug addiction, transportation, low edu. Level, literacy, decrease access to med. care, group home, rehab)? @ -No Was there de-escalation of care discussed even if they declined (Discuss DNR or withdrawal of care, Hospice)? DNR status @ -No What co-morbidities impacted this encounter? (DM, HTN, Smoking, COPD, CAD, Cancer, CVA, ARF, Chemo, Hep., AIDS, mental health diagnosis, sleep apnea, morbid obesity)? @ -None Was patient admitted / discharged? Hospital course, mention meds given and route, prescriptions, significant lab abnormalities, going to OR and other pertinent info. @ -I did offer further testing including laboratory testing however patient declines at this time. She will follow-up with her primary care provider. Patient has stable vitals and is not in any acute distress. Undiagnosed new problem with uncertain prognosis? @ -No Drug Therapy requiring intensive monitoring for toxicity (Heparin, Nitro, Insulin, Cardizem)? @ -No Were any procedures done? @ -No Diagnosis/symptom? @ -[Dysuria Acute, or Chronic, or Acute on Chronic? @ -Acute Uncomplicated (without systemic symptoms) or Complicated (systemic symptoms)? @ -Default Side effects of treatment? @ -No Exacerbation, Progression, or Severe Exacerbation? @ -No Poses a threat to life or bodily function? How? (Chest pain, [place], [place], pneumonia, PE, COPD, DKA, ARF, appy, cholecystitis, CVA, Diverticulitis, Homicidal, Suicidal, threat to staff... and all critical care pts) @ -Low risk - Lab Data Lab Results 05/23/23 Range/Units 12:23 Urine Color Yellow Urine Appearance Cloudy H (Clear) Urine pH 5.5 (5.0-8.0) Ur Specific [place] 1.029 (1.001-1.035) Urine Protein Trace H (Negative) Urine Glucose (UA) Negative (Negative) Urine Ketones Negative (Negative) Urine Blood Negative (Negative) Urine Nitrite Negative (Negative) Urine Bilirubin Negative (Negative) Urine Urobilinogen <2.0 (<2.0) mg/dL Ur Leukocyte Esterase Negative (Negative) Ur Squamous Epith Cells 3 (0-4) /hpf Calcium Oxalate Crystal Many H (None) /hpf Urine Bacteria Rare H (None) /hpf Hyaline Casts 4 H (0-2) /lpf Urine Mucus Many H (None) /hpf Disposition Clinical Impression: Dysuria Disposition: HOME SELF-CARE Condition: Fair Instructions (If sedation given, give patient instructions): Dysuria (ED) Is patient prescribed a controlled substance at d/c from ED?: No Referrals: Danyel Washburn [Primary Care Provider] - 1-2 days Time of Disposition: 13:14
== END 2023-05-23 13:32 | disposition home or self-care (01) ==
LOC: EC 11:40
DX: R30.0 Dysuria (principal); I10 Essential (primary) hypertension; F41.9 Anxiety disorder, unspecified; J45.909 Unspecified asthma, uncomplicated; M19.90 Unspecified osteoarthritis, unspecified site; Z79.51 Long term (current) use of inhaled steroids; Z79.899 Other long term (current) drug therapy; Z88.0 Allergy status to penicillin; Z90.49 Acquired absence of other specified parts of digestive tract
CPT/HCPCS: 81001; 99284

== ENCOUNTER 2023-08-13 23:14 | Inpatient (IN) | payer MEDICARE, OTHER ==
[2023-08-14 00:20] LABS: ALT 31 U/L (4-34); African American GFR (CKD) >90 (>60 ml/min/1.73 sqM); Anion Gap 11 mmol/L; Blood Urea Nitrogen 15 mg/dL (7-17); Carbon Dioxide 29 mmol/L (22-30); Chloride 98 mmol/L (98-107); Glucose 152 mg/dL (74-99); Non-African American GFR(CKD) 84 (>60 ml/min/1.73 sqM); Sodium 138 mmol/L (137-145); Total Bilirubin 1.8 mg/dL (0.2-1.3)
[2023-08-14 00:21] LABS: AST 47 U/L (14-36); Albumin 4.5 g/dL (3.5-5.0); Alkaline Phosphatase 83 U/L (38-126); Potassium 3.6 mmol/L (3.5-5.1); Total Protein 7.9 g/dL (6.3-8.2)
--- NOTE | 2023-08-14 00:39 | ED ---
Abdominal Pain HPI - General Chief Complaint: Abdominal Pain Stated Complaint: Abd pain Time Seen by Provider: 08/14/23 00:10 Source: patient Mode of arrival: EMS Limitations: no limitations - History of Present Illness Initial Comments: 67-year-old female presents to the ED with a chief complaint of abdominal pain. Patient states shortly after having dinner tonight at 7 PM started to experience nausea, dry heaving, and abdominal pain. Denies changes in bowel or bladder habits. Denies fever. Denies chest pain or shortness of breath. No other com plaints at this time. - Related Data Home Medications Medication Instructions Recorded Confirmed Levothyroxine Sodium [Synthroid] 75 mcg PO DAILY 01/17/18 12/23/20 amLODIPine [Norvasc] 10 mg PO DAILY 01/17/18 12/23/20 Metoprolol Tartrate [Lopressor] 50 mg PO DAILY 10/23/18 12/23/20 hydroCHLOROthiazide [Hydrodiuril] 50 mg PO Q48H 10/23/18 12/23/20 Acetaminophen-Codeine 300-30mg 1 tab PO Q6H PRN 12/23/20 12/23/20 [Tylenol w/codeine #3] Albuterol Nebulized [Ventolin 2.5 mg INHALATION RT-QID 12/23/20 12/23/20 Nebulized] Albuterol Sulfate [Proair Hfa] 2 puff INHALATION RT-Q4H PRN 12/23/20 12/23/20 Fluticasone Propionate [Flovent 1 puff INHALATION RT-BID 12/23/20 12/23/20 Hfa 110 mcg] LORazepam [Ativan] 0.5 mg PO BID PRN 12/23/20 12/23/20 Omeprazole 20 mg PO DAILY 12/23/20 12/23/20 Previous Rx's Medication Instructions Recorded Azithromycin [Zithromax Z-pack (6 0 mg PO DIRECTED #1 pack 12/23/20 tabs)] Allergies Allergy/AdvReac Type Severity Reaction Status Date / Time Penicillins Allergy Unknown Verified 08/13/23 23:24 Childhood Review of Systems ROS Statement: Those systems with pertinent positive or pertinent negative responses have been documented in the HPI. ROS Other: All systems not noted in ROS Statement are negative. Past Medical History Past Medical History: Asthma, Fibromyalgia, Hypertension, Osteoarthritis (OA) Additional Past Medical History / Comment(s): joint pain History of Any Multi-Drug Resistant Organisms: None Reported Past Surgical History: Appendectomy, Cholecystectomy, Orthopedic Surgery, Tubal Ligation Past Psychological History: Anxiety Smoking Status: Never smoker Past Alcohol Use History: None Reported Past Drug Use History: None Reported General Exam Limitations: no limitations General appearance: alert, in no apparent distress Neck exam: Present: normal inspection Respiratory exam: Present: normal lung sounds bilaterally Cardiovascular Exam: Present: regular rate GI/Abdominal exam: Present: soft (No significant tenderness to palpation. No rebound guarding or rigidity.) Neurological exam: Present: alert, oriented X3 Skin exam: Present: warm, dry Course Vital Signs 08/13/23 23:22 Temperature 97.6 F Pulse Rate 86 Respiratory 18 Rate Blood Pressure 124/81 O2 Sat by Pulse 97 Oximetry Procedures - Procedures Initial comment: 16 Malagasy NG tube placed by myself. Patient tolerated procedure well. Medical Decision Making - Medical Decision Making Was pt. sent in by a medical professional or institution (, PA, PAINTER ORDNANCE, urgent care, hospital, or [facility]...) When possible be specific @ -No Did you speak to anyone other than the patient for history (EMS, parent, family, police, friend...)? What history was obtained from this source @ -No Did you review nursing and triage notes (agree or disagree)? Why? @ -I reviewed and agree with nursing and triage notes Were old charts reviewed (outside hosp., previous admission, EMS record, old EKG, old radiological studies, urgent care reports/EKG's, [facility] records)? Report findings @ -No old charts were reviewed Differential Diagnosis (chest pain, altered mental status, abdominal pain women, abdominal pain men, vaginal bleeding, weakness, fever, dyspnea, syncope, headache, dizziness, GI bleed, back pain, seizure, CVA, palpatations, mental h ealth, musculoskeletal)? @ -Differential Abdominal Pain Women: Appendicitis, Cholecystitis, diverticulosis, ischemic bowel, pancreatitis, hepatitis, UTI, gastroenteritis, AAA, incarcerated hernia, bowel obstruction, constipation, inflammatory bowel, hepatitis, peptic ulcer disease, splenic infarction, perforated viscus, vulvitis, ovarian torsion, PID, kidney stone, placenta abruption, this is not meant to be an all-inclusive list EKG interpreted by me (3pts min.). @ -As above X-rays interpreted by me (1pt min.). @ -None done CT interpreted by me (1pt min.). @ -CT abdomen pelvis inter by me showing moderate small bowel distention with transition zone in the left lower quadrant concerning for partial small bowel obstruction. U/S interpreted by me (1pt. min.). @ -None done What testing was considered but not performed or refused? (CT, X-rays, U/S, labs)? Why? @ -None What meds were considered but not given or refused? Why? @ -None Did you discuss the management of the patient with other professionals (professionals i.e. Dr., PA, PAINTER ORDNANCE, lab, RT, psych nurse, social science teacher, mica miner blasting, teacher, quality officer, family preservation caseworker)? Give summary @ -Case discussed with Dr. Sanchez of general surgery who will see the patient on consult. Was smoking cessation discussed for >3mins.? @ -No Was critical care preformed (if so, how long)? @ -No Were there social determinants of health that impacted care today? How? ( Homelessness, low income, unemployed, alcoholism, drug addiction, transportation, low edu. Level, literacy, decrease access to med. care, shelter, rehab)? @ -No Was there de-escalation of care discussed even if they declined (Discuss DNR or withdrawal of care, Hospice)? DNR status @ -No What co-morbidities impacted this encounter? (DM, HTN, Smoking, COPD, CAD, Cancer, CVA, ARF, Chemo, Hep., AIDS, mental health diagnosis, sleep apnea, morbid obesity)? @ -Obesity Was patient admitted / discharged? Hospital course, mention meds given and route, prescriptions, significant lab abnormalities, going to OR and other pertinent info. @ -Admission 67-year-old female presented to the ED with complaints of nausea and vomiting shortly after having dinner today. Labs reviewed. Labs including CBC, CMP, serology panel largely unremarkable. Did have some slight hypomagnesemia. This was repleted. Amylase lipase unremarkable. Troponin undetectable. CT abdomen pelvis does show findings concerning for partial small bowel obstruction. Patient will be admitted and kept n.p.o. with consult to surgery. NG tube was placed. Discussed plan of care with patient who is in agreement. Undiagnosed new problem with uncertain prognosis? @ -No Drug Therapy requiring intensive monitoring for toxicity (Heparin, Nitro, Insulin, Cardizem)? @ -No Were any procedures done? @ -No Diagnosis/symptom? @ -Partial small bowel obstruction Acute, or Chronic, or Acute on Chronic? @ -Acute Uncomplicated (without systemic symptoms) or Complicated (systemic symptoms)? @ -Uncomplicated Side effects of treatment? @ -No Exacerbation, Progression, or Severe Exacerbation? @ -No Poses a threat to life or bodily function? How? (Chest pain, [place], [place], pneumonia, PE, COPD, DKA, ARF, appy, cholecystitis, CVA, Diverticulitis, Homicidal, Suicidal, threat to staff... and all critical care pts) @ -No - Lab Data Result diagrams: 08/13/23 23:35 08/13/23 23:35 Lab Results 08/13/23 08/13/23 08/13/23 Range/Units 23:35 23:35 23:35 WBC 12.5 H (3.8-10.6) k/uL RBC 4.82 (3.80-5.40) m/uL Hgb 15.2 (11.4-16.0) gm/dL Hct 45.7 (34.0-46.0) % MCV 94.9 (80.0-100.0) fL MCH 31.6 (25.0-35.0) pg MCHC 33.4 (31.0-37.0) g/dL RDW 12.9 (11.5-15.5) % Plt Count 326 (150-450) k/uL MPV 10.7 Neutrophils % 67 % Lymphocytes % 24 % Monocytes % 7 % Eosinophils % 0 % Basophils % 1 % Neutrophils # 8.4 H (1.3-7.7) k/uL Lymphocytes # 3.0 (1.0-4.8) k/uL Monocytes # 0.9 (0-1.0) k/uL Eosinophils # 0.0 (0-0.7) k/uL Basophils # 0.1 (0-0.2) k/uL Sodium 138 (137-145) mmol/L Potassium 3.6 (3.5-5.1) mmol/L Chloride 98 (98-107) mmol/L Carbon Dioxide 29 (22-30) mmol/L Anion Gap 11 mmol/L BUN 15 (7-17) mg/dL Creatinine 0.75 (0.52-1.04) mg/dL Est GFR (CKD-EPI)AfAm >90 (>60 ml/min/1.73 sqM) Est GFR (CKD-EPI)NonAf 84 (>60 ml/min/1.73 sqM) Glucose 152 H (74-99) mg/dL Calcium 10.0 (8.4-10.2) mg/dL Magnesium (1.6-2.3) mg/dL Total Bilirubin 1.8 H (0.2-1.3) mg/dL AST 47 H (14-36) U/L ALT 31 (4-34) U/L Alkaline Phosphatase 83 (38-126) U/L Troponin I (0.000-0.034) ng/mL Total Protein 7.9 (6.3-8.2) g/dL Albumin 4.5 (3.5-5.0) g/dL Amylase 46 (30-110) U/L Lipase 113 (23-300) U/L Influenza Type A (PCR) (Not Detectd) Influenza Type B (PCR) (Not Detectd) RSV (PCR) (Not Detectd) SARS-CoV-2 (PCR) (Not Detectd) 08/13/23 08/13/23 08/14/23 Range/Units 23:35 23:35 01:26 WBC (3.8-10.6) k/uL RBC (3.80-5.40) m/uL Hgb (11.4-16.0) gm/dL Hct (34.0-46.0) % MCV (80.0-100.0) fL MCH (25.0-35.0) pg MCHC (31.0-37.0) g/dL RDW (11.5-15.5) % Plt Count (150-450) k/uL MPV Neutrophils % % Lymphocytes % % Monocytes % % Eosinophils % % Basophils % % Neutrophils # (1.3-7.7) k/uL Lymphocytes # (1.0-4.8) k/uL Monocytes # (0-1.0) k/uL Eosinophils # (0-0.7) k/uL Basophils # (0-0.2) k/uL Sodium (137-145) mmol/L Potassium (3.5-5.1) mmol/L Chloride (98-107) mmol/L Carbon Dioxide (22-30) mmol/L Anion Gap mmol/L BUN (7-17) mg/dL Creatinine (0.52-1.04) mg/dL Est GFR (CKD-EPI)AfAm (>60 ml/min/1.73 sqM) Est GFR (CKD-EPI)NonAf (>60 ml/min/1.73 sqM) Glucose (74-99) mg/dL Calcium (8.4-10.2) mg/dL Magnesium 1.1 L (1.6-2.3) mg/dL Total Bilirubin (0.2-1.3) mg/dL AST (14-36) U/L ALT (4-34) U/L Alkaline Phosphatase (38-126) U/L Troponin I <0.012 (0.000-0.034) ng/mL Total Protein (6.3-8.2) g/dL Albumin (3.5-5.0) g/dL Amylase (30-110) U/L Lipase (23-300) U/L Influenza Type A (PCR) Not Detected (Not Detectd) Influenza Type B (PCR) Not Detected (Not Detectd) RSV (PCR) Not Detected (Not Detectd) SARS-CoV-2 (PCR) Not Detected (Not Detectd) Disposition Clinical Impression: Partial small bowel obstruction Disposition: ADMITTED IP TO THIS HOSP Condition: Good Referrals: Danyel Washburn [Primary Care Provider] - 1-2 days Time of Disposition: 03:15
[2023-08-14 01:06] LABS: Basophils # (A) 0.1 k/uL (0-0.2); Basophils % (A) 1 %; Eosinophils % (A) 0 %; HCT 45.7 % (34.0-46.0); HGB 15.2 gm/dL (11.4-16.0); Lymphocytes % (A) 24 %; MCH 31.6 pg (25.0-35.0); MCHC 33.4 g/dL (31.0-37.0); MCV 94.9 fL (80.0-100.0); Mean Platelet Volume 10.7; Monocytes # (A) 0.9 k/uL (0-1.0); Monocytes % (A) 7 %; Neutrophils # (A) 8.4 k/uL (1.3-7.7); Neutrophils % (A) 67 %; Platelet Count 326 k/uL (150-450); RBC 4.82 m/uL (3.80-5.40); RDW 12.9 % (11.5-15.5); WBC 12.5 k/uL (3.8-10.6)
[2023-08-14 01:26] LABS: Amylase 46 U/L (30-110); Lipase 113 U/L (23-300)
[2023-08-14] MEDS: ONDANSETRON 4 MG/2 ML VIAL IVP STA (02:18)
[2023-08-14] MEDS: SODIUM CHLORIDE 0.9% 1,000 ML IV STA (02:19)
--- NOTE | 2023-08-14 02:42 | CT ---
EXAM: CT Abdomen and Pelvis With Intravenous Contrast CLINICAL HISTORY: ITS.REASON CT Reason: epigastric abdominal pain TECHNIQUE: Axial computed tomography images of the abdomen and pelvis with intravenous contrast. CTDI is 50.1 mGy and DLP is 2680.4 mGy-cm. This CT exam was performed using one or more of the following dose reduction techniques: automated exposure control, adjustment of the mA and/or kV according to patient size, and/or use of iterative reconstruction technique. COMPARISON: No relevant prior studies available. FINDINGS: Lung bases: Lungs demonstrate bibasilar atelectasis. ABDOMEN: Liver: Unremarkable. No mass. Gallbladder and bile ducts: Gallbladder has been removed. No ductal dilation. Pancreas: Unremarkable. No mass. No ductal dilation. Spleen: Unremarkable. No splenomegaly. Adrenals: Unremarkable. No mass. Kidneys and ureters: Left lower pole parapelvic renal cysts. No further workup is required. No hydronephrosis. Stomach and bowel: Moderate small bowel distention with transition zone in the left lower quadrant concerning for at least a partial small bowel obstruction. No mucosal thickening. PELVIS: Appendix: No findings to suggest acute appendicitis. Bladder: Unremarkable. No mass. Reproductive: Unremarkable as visualized. ABDOMEN and PELVIS: Intraperitoneal space: Unremarkable. No free air. No significant fluid collection. Bones/joints: No acute fracture. No dislocation. Soft tissues: Unremarkable. Vasculature: Unremarkable. No abdominal aortic aneurysm. Lymph nodes: Unremarkable. No enlarged lymph nodes. IMPRESSION: Moderate small bowel distention with transition zone in the left lower quadrant concerning for at least a partial small bowel obstruction.
[2023-08-14] MEDS: LORazepam 2 MG/ML INJ IV STA ×2 (02:57→03:55)
[2023-08-14] MEDS ORDERED: NALOXONE 0.4 MG/ML 1 ML VIAL IV PRN (03:45)
[2023-08-14] MEDS: METOCLOPRAMIDE 5 MG/ML 2 ML VIAL IVP STA (03:58)
[2023-08-14] MEDS: ACETAMINOPHEN IV (For NPO) 1,000 MG in EMPTY BAG 1 BAG IVPB STA (04:00)
[2023-08-14] MEDS: MAGNESIUM SULFATE-D5W PMX 1 GM in DEXTROSE/WATER 1 100ML.BAG IVPB ONE ×2 (04:02→10:58)
[2023-08-14] MEDS: SODIUM CHLORIDE 0.9% 1,000 ML IV SCH (05:03)
[2023-08-14] MEDS: ONDANSETRON 4 MG/2 ML VIAL IVP PRN (05:31)
--- NOTE | 2023-08-14 07:34 | XR ---
EXAM: XR Chest, 1 View CLINICAL HISTORY: Reason: confirm ng tube placement TECHNIQUE: Frontal view of the chest. COMPARISON: 08/15/21 FINDINGS: Lungs: There is no evidence of airspace consolidation or pulmonary edema. Mild atelectasis seen in the left lung base. Pleural space: Unremarkable. No pneumothorax. Heart: Cardiac silhouette is within normal limits. Mediastinum: Enteric tube is in place. Evaluation of enteric tube positioning is limited by patient body habitus and motion, though it appears to be within the gastric lumen. Bones/joints: Unremarkable. No acute fracture. IMPRESSION: Limited exam due to patient body habitus and motion. Enteric tube is most likely within the gastric lumen. If further imaging is warranted for confirmation consider an single frontal abdominal view. No evidence of acute airspace consolidation or pulmonary edema.
[2023-08-14] MEDS: METOCLOPRAMIDE 5 MG/ML 2 ML VIAL IVP SCH (10:06)
[2023-08-14] MEDS: LORazepam 2 MG/ML INJ IV PRN (10:07)
--- NOTE | 2023-08-14 10:32 | P.GSCN ---
History of Present Illness Consult date: 08/14/23 History of present illness: CHIEF COMPLAINT: Abdominal pain HISTORY OF PRESENT ILLNESS: This is a 67-year-old female who presented to the hospital with complaints of abdominal pain. She reports that the pain had started after dinner last night around 7 PM. She was experiencing nausea, dry heaves and abdominal pain. Patient was found to have concerns of partial small bowel obstruction. She had NG tube placed. Patient is reporting that her pain has improved. And she is having flatus. CT scan abdomen pelvis had reported moderate small bowel distention with transition point in the left lower quadrant concerning for at least a partial small bowel obstruction. Her past surgical history includes appendectomy, cholecystectomy and tubal ligation. PAST MEDICAL HISTORY: See list. PAST SURGICAL HISTORY: See list. MEDICATIONS: See list. ALLERGIES: See list. SOCIAL HISTORY: No illicit drug use. REVIEW OF SYSTEMS: CONSTITUTIONAL: Denies fever or chills. HEENT: Denies blurred vision, vision changes, or eye pain. Denies hemoptysis ENDOCRINE: Denies heat or cold intolerance. CARDIOVASCULAR: Denies chest pain or pressure. RESPIRATORY: No shortness of breath. GASTROINTESTINAL: Please refer to HPI otherwise unremarkable NEURO: Denies history of seizures. PSYCH: No depression or suicidal ideation HEMATOLOGIC: Denies bleeding disorders. LYMPHATIC: The patient denies any lumps and bumps around the neck. GENITOURINARY: Denies any blood in urine or increased urinary frequency. MUSCULOSKELETAL: Denies myalgias. Denies joint swelling. Denies decreased range of motion beyond patients baseline. SKIN: Denies pruitis. Denies rash. PHYSICAL EXAM: VITAL SIGNS: Reviewed GENERAL: Well-developed in no acute distress. HEENT: No sclera icterus. Extraocular movements grossly intact. Moist buccal mucosa. Head is atraumatic, normocephalic. Hears conversational speech. No nasal drainage. NECK: Supple without lymphadenopathy. CHEST: Non-labored respirations and equal bilateral excursions. CARDIOVASCULAR: Palpable 2+ radial pulses. ABDOMEN: Soft. Nondistended. Nontender MUSCULOSKELETAL: No clubbing or cyanosis. NEUROLOGIC: No focal or lateralizing signs. Cranial nerves II through XII grossly intact. PSYCH: Appropriate affect. Alert and oriented to person, place and time. SKIN: Well perfused. Good skin turgor. LABORATORY DATA: WBC 12.5 Hgb 15.2 platelets 326 Sodium 138 potassium 3.6 creatinine 0.75 Magnesium was 1.1 Total bili 1.8 AST 47 ALT 31 lipase 113 Influenza RSV and COVID-19 not detected IMAGING: CT scan abdomen pelvis reports moderate small bowel distention with transition point in the right lower quadrant concerning for at least partial small bowel obstruction ASSESSMENT: 1. Partial small bowel obstruction 2. Prior history of abdominal surgery 3. Hypomagnesemia PLAN: -Check follow-up abdominal x-ray for further evaluation of possible resolving small bowel obstruction -Depending on x-ray results may remove NG tube later today -At this time continue NG tube for decompression -Keep patient n.p.o. -Continue IV fluids -Continue to replace magnesium -Repeat magnesium and labs in a.m. Thank you for this consultation Physician Research Pharmacist note has been reviewed by physician. Signing provider agrees with the documented findings, assessment, and plan of care. Past Medical History Past Medical History: Asthma, Fibromyalgia, Hypertension, Osteoarthritis (OA) Additional Past Medical History / Comment(s): joint pain History of Any Multi-Drug Resistant Organisms: None Reported Past Surgical History: Appendectomy, Cholecystectomy, Orthopedic Surgery, Tubal Ligation Past Psychological History: Anxiety Smoking Status: Never smoker Past Alcohol Use History: None Reported Past Drug Use History: None Reported Medications and Allergies Home Medications Medication Instructions Recorded Confirmed Type amLODIPine [Norvasc] 10 mg PO HS 01/17/18 08/14/23 History Metoprolol Tartrate [Lopressor] 50 mg PO HS 10/23/18 08/14/23 History Acetaminophen-Codeine 300-30mg 1 tab PO Q6H PRN 12/23/20 08/14/23 History [Tylenol w/codeine #3] Omeprazole 20 mg PO HS 12/23/20 08/14/23 History Albuterol Sulfate [Albuterol 2 puff PO RT-Q6H PRN 08/14/23 08/14/23 History Sulfate Hfa] Levothyroxine Sodium [Synthroid] 50 mcg PO HS 08/14/23 08/14/23 History Triamterene/Hydrochlorothiazid 1 tab PO HS 08/14/23 08/14/23 History [Triamterene-Hctz 37.5-25 mg Tb] Allergies Allergy/AdvReac Type Severity Reaction Status Date / Time Penicillins Allergy Unknown Verified 04/16/24 07:37 Childhood Surgical - Exam Vital Signs Temp Pulse Resp BP Pulse Ox 97.6 F 86 18 124/81 97 08/13/23 23:22 08/13/23 23:22 08/13/23 23:22 08/13/23 23:22 08/13/23 23:22 Results - Labs 08/13/23 23:35 08/13/23 23:35 Abnormal Lab Results - Last 24 Hours (Table) 08/13/23 08/13/23 08/13/23 Range/Units 23:35 23:35 23:35 WBC 12.5 H (3.8-10.6) k/uL Neutrophils # 8.4 H (1.3-7.7) k/uL Glucose 152 H (74-99) mg/dL Magnesium 1.1 L (1.6-2.3) mg/dL Total Bilirubin 1.8 H (0.2-1.3) mg/dL AST 47 H (14-36) U/L Diabetes panel 08/13/23 Range/Units 23:35 Sodium 138 (137-145) mmol/L Potassium 3.6 (3.5-5.1) mmol/L Chloride 98 (98-107) mmol/L Carbon Dioxide 29 (22-30) mmol/L BUN 15 (7-17) mg/dL Creatinine 0.75 (0.52-1.04) mg/dL Glucose 152 H (74-99) mg/dL Calcium 10.0 (8.4-10.2) mg/dL AST 47 H (14-36) U/L ALT 31 (4-34) U/L Alkaline Phosphatase 83 (38-126) U/L Total Protein 7.9 (6.3-8.2) g/dL Albumin 4.5 (3.5-5.0) g/dL Calcium panel 08/13/23 Range/Units 23:35 Calcium 10.0 (8.4-10.2) mg/dL Albumin 4.5 (3.5-5.0) g/dL Pituitary panel 08/13/23 Range/Units 23:35 Sodium 138 (137-145) mmol/L Potassium 3.6 (3.5-5.1) mmol/L Chloride 98 (98-107) mmol/L Carbon Dioxide 29 (22-30) mmol/L BUN 15 (7-17) mg/dL Creatinine 0.75 (0.52-1.04) mg/dL Glucose 152 H (74-99) mg/dL Calcium 10.0 (8.4-10.2) mg/dL Adrenal panel 08/13/23 Range/Units 23:35 Sodium 138 (137-145) mmol/L Potassium 3.6 (3.5-5.1) mmol/L Chloride 98 (98-107) mmol/L Carbon Dioxide 29 (22-30) mmol/L BUN 15 (7-17) mg/dL Creatinine 0.75 (0.52-1.04) mg/dL Glucose 152 H (74-99) mg/dL Calcium 10.0 (8.4-10.2) mg/dL Total Bilirubin 1.8 H (0.2-1.3) mg/dL AST 47 H (14-36) U/L ALT 31 (4-34) U/L Alkaline Phosphatase 83 (38-126) U/L Total Protein 7.9 (6.3-8.2) g/dL Albumin 4.5 (3.5-5.0) g/dL
--- NOTE | 2023-08-14 10:58 | XR ---
EXAMINATION TYPE: XR abdomen 2V DATE OF EXAM: 08/14/2023 COMPARISON: None INDICATION: Follow-up SBO TECHNIQUE: Single view abdomen right view FINDINGS: There is a nonspecific bowel gas pattern. Non dilated loops of bowel are evident. Some air-filled sma ll bowel loops in the left midabdomen. No suspicious air-fluid levels or differential air-fluid level s evident. Somewhat more prominent air-filled small bowel loop is in the left lower quadrant. Ileus a nd mild obstruction could be considered. Mass effect is not evident. There is within the colon. Psoas margins are normal. No organomegaly is present. IMPRESSION: 1. Nonspecific bowel gas pattern. Mild ileus versus minimal partial small bowel obstruction could be considered. Ileus is favored. 2. Nasogastric tube within the distal esophagus. This can be advanced 18 to 20 cm for better position ing. A Yellow level critical message alert has been initiated for [facility] via the [employer] Critical Results System on 08/14/2023 10:55 AM. This message alert has been sent to [facility] via the preferences provided by the clinician for the receipt of Radiology Critical Findings. Message ID [id number].
[2023-08-14 12:00] LABS: Partial Thromboplastin Time 23.2 sec (22.0-30.0)
[2023-08-14 12:38] LABS: Appearance,Urine Clear (Clear); Bilirubin,Urine Negative (Negative); Blood,Urine Negative (Negative); Color,Urine Light Yellow; Glucose,Urine (UA) Negative (Negative); Ketones,Urine Negative (Negative); Leukocyte Esterase,Urine Negative (Negative); Nitrite,Urine Negative (Negative); Protein,Urine Trace (Negative); Urobilinogen,Urine <2.0 mg/dL (<2.0)
[2023-08-14 12:42] LABS: Specific Gravity,Urine >1.050 (1.001-1.035)
--- NOTE | 2023-08-14 13:00 | XR ---
EXAMINATION TYPE: XR chest 1V confirm line [facility] DATE OF EXAM: 08/14/2023 COMPARISON: 08/14/2023 HISTORY: NG tube placement TECHNIQUE: AP chest FINDINGS: Nasogastric tube is been advanced and has its tip located within the left upper quadrant of the abdomen. Heart size is normal. Pulmonary vasculature is normal. Mild left lower lobe infiltrate is present. Co rrelate for atelectasis. Pneumonia could be considered. IMPRESSION: 1. NG tube tip within the left upper quadrant abdomen. 2. Left lower lobe infiltrate. Correlate for atelectasis or pneumonia.
[2023-08-14] MEDS ORDERED: ONDANSETRON 4 MG/2 ML VIAL IVP PRN (13:56)
[2023-08-14] MEDS ORDERED: hydrALAZINE HCL 20 MG/ML 1 ML VIAL IVP PRN (14:00)
[2023-08-14] MEDS: PANTOPRAZOLE 40 MG/10 ML VIAL IVP SCH (14:15)
[2023-08-14] MEDS: HEPARIN SODIUM,PORCINE 5,000 UNIT/ML 1 ML VIAL SQ SCH (14:17)
[2023-08-14] MEDS: ALBUTEROL NEBULIZED 2.5 MG/3 ML INHALATION SCH (15:03)
[2023-08-14] MEDS: KETOROLAC 15 MG/ML 1 ML VIAL IVP PRN (16:07)
[2023-08-14] MEDS: LEVOTHYROXINE 50 MCG TAB PO SCH (20:24)
[2023-08-14] MEDS: METOPROLOL TARTRATE 50 MG TAB PO SCH (20:24)
[2023-08-14] MEDS: amLODIPine 10 MG TAB PO SCH (20:24)
--- NOTE | 2023-08-15 00:51 | HP ---
HISTORY AND PHYSICAL CHIEF COMPLAINT: Abdominal pain. HISTORY OF PRESENT ILLNESS: This is a 67-year-old woman with a past medical history of multiple medical problems, admitted with severe abdominal pain, which was started after dinner at 7:00 a.m. yesterday. She had some nausea and some dry heaving also. The patient had previously cholecystectomy and appendectomy, and a CAT scan of the abdomen and pelvis which I reviewed personally showed evidence of moderate to small bowel distention. The transverse view of the left lower quadrant showing at least a partial small bowel obstruction. Surgery has seen the patient and NG tube was inserted. The patient still has a significant pain. The patient also had hypomagnesemia also. The plain x-ray of abdomen this morning still showed continued dilatation of the bowel loops. The chest x- ray showed some blunting of the costophrenic angle. There is no history of fever, rigors, or chills at this time. PAST MEDICAL HISTORY: History of cholecystectomy, history of appendectomy, fibromyalgia, asthma, and rest of the chart is also reviewed. HOME MEDICATIONS: Reviewed include triamterene, dose and rest of medications noted. ALLERGIES: Penicillin. FAMILY HISTORY: No history of heart attack or stroke. SOCIAL HISTORY: No history of smoking or alcohol intake. REVIEW OF SYSTEMS: Fourteen-point review is negative except as mentioned earlier. PHYSICAL EXAMINATION: VITAL SIGNS: Pulse is 104, Blood pressure 140/90, and respirations 22. HEENT: Conjunctivae normal. NECK: No JVD. CARDIOVASCULAR: S1, S2. RESPIRATIONS: Breath sounds diminished at the bases. Few rhonchi. No crackles. ABDOMEN: Soft and obese. Some diffuse tenderness present. No guarding. No rigidity. No mass palpable. Bowel sounds diminished. LEGS: No edema. SKIN: No ulcer, rash, bleeding. JOINTS: No active deforming arthropathy. NERVOUS SYSTEM: No focal deficits. The patient is slightly drowsy after pain medications. LABORATORY DATA: WBC 12.5 and bilirubin is 1.8. AST is 47. Rest of the labs are noted. ASSESSMENT: 1. Abdominal pain and distention with partial small bowel obstruction with transition point in the left lower quadrant on NG tube. 2. Increased WBC. 3. Mild elevation of the bilirubin. 4. History of asthma. 5. History of fibromyalgia. 6. Hypertension. 7. History of degenerative joint disease. 8. History of appendectomy and cholecystectomy. 9. History of anxiety. RECOMMENDATIONS AND DISCUSSION: This is a 67-year-old woman presented with multiple complex medical issues. I would recommend to continue the NG tube. Follow closely with Surgery. There is no evidence of infection at this time. I would recommend blood cultures. COVID swab has been done. Otherwise, we will continue to monitor. DVT prophylaxis. Resume the home medications once they are confirmed. Discussed with the patient. Guarded prognosis. Further recommendations to follow. See orders for details. MMODL / IJN: [id number] /
[2023-08-15 05:43] LABS: Glucose,Whole Blood 111 mg/dL (70-110)
[2023-08-15] MEDS: HYDROmorphone 0.5 MG/0.5 ML SYRINGE IVP STA (06:25)
[2023-08-15 08:59] LABS: Basophils # (A) 0.08 X 10*3/uL (0.00-0.10); Basophils % (A) 0.7 %; Eosinophils # (A) 0 X 10*3/uL (0.04-0.35); Eosinophils % (A) 0 %; HGB 12.3 g/dL (12.0-15.0); Lymphocytes # (A) 4.23 X 10*3/uL (0.90-5.00); Lymphocytes % (A) 39.2 %; MCHC 33.2 g/dL (32.0-37.0); MCV 96.4 FL (80.0-97.0); Mean Platelet Volume 11.1 FL (9.5-12.2); Monocytes # (A) 1.11 X 10*3/uL (0.20-1.00); Monocytes % (A) 10.3 %; NRBC Per 100 WBC 0 X 10*3/uL (0.00-0.01); Neutrophils # (A) 5.34 X 10*3/uL (1.80-7.70); Neutrophils % (A) 49.5 %; Platelet Count 284 X 10*3/uL (140-440); RBC 3.84 X 10*6/uL (4.10-5.20); RDW 13.5 % (11.5-14.5); WBC 10.79 X 10*3/uL (4.50-10.00)
[2023-08-15 09:24] LABS: ALT 22 U/L (8-44); AST 33 U/L (13-35); Albumin 3.6 g/dL (3.8-4.9); Albumin/Globulin Ratio 1.57 Ratio (1.60-3.17); Alkaline Phosphatase 61 U/L (41-126); BUN/Creat Ratio 15.44 Ratio (12.00-20.00); Blood Urea Nitrogen 13.9 mg/dL (9.0-27.0); Carbon Dioxide 29.5 mmol/L (21.6-31.8); Chloride 102 mmol/L (96-109); Globulin 2.3 g/dL (1.6-3.3); Glucose 105 mg/dL (70-110); Magnesium 1.6 mg/dL (1.5-2.4); Potassium 3.1 mmol/L (3.5-5.5); Sodium 142 mmol/L (135-145); Total Bilirubin 1.4 mg/dL (0.3-1.2); Total Protein 5.9 g/dL (6.2-8.2)
[2023-08-15] MEDS: BENZOCAINE SPRAY 1 CAN MUCOUS MEM PRN (12:05)
[2023-08-15] MEDS: SIMETHICONE 40 MG/0.6 ML DROPS 2,000 MG/30 ML BOTTLE PO SCH (12:05)
--- NOTE | 2023-08-15 14:08 | P.PN ---
Subjective Progress Note Date: 08/15/23 CHIEF COMPLAINT: Partial small bowel obstruction HISTORY OF PRESENT ILLNESS: Patient having a large amount of flatus. Denies any abdominal pain. Complains of the NG tube is causing more throat pain and h eadache. Denies any nausea. No bowel movement. Afebrile. WBC 12.5 down to 10.79 Hgb 12.3 platelets 284 potassium is 3.1 magnesium 1.6 PHYSICAL EXAM: VITAL SIGNS: Reviewed GENERAL: Well-developed in no acute distress. HEENT: No sclera icterus. Extraocular movements grossly intact. Moist buccal mucosa. Head is atraumatic, normocephalic. Hears conversational speech. No nasal drainage. NECK: Supple without lymphadenopathy. CHEST: Non-labored respirations and equal bilateral excursions. CARDIOVASCULAR: Palpable 2+ radial pulses. ABDOMEN: Soft. Nondistended. Nontender. MUSCULOSKELETAL: No clubbing or cyanosis. NEUROLOGIC: No focal or lateralizing signs. Cranial nerves II through XII grossly intact. PSYCH: Appropriate affect. Alert and oriented to person, place and time. SKIN: Well perfused. Good skin turgor. ASSESSMENT: 1. Partial small bowel obstruction 2. Prior history of abdominal surgery 3. Hypomagnesemia 4. Hypokalemia PLAN: -Discontinue NG tube -Start clear liquid diet -Replace magnesium and potassium. Repeat labs in a.m. -Encourage patient to increase activity level Physician Cinder Worker note has been reviewed by physician. Signing provider agrees with the documented findings, assessment, and plan of care. Objective - Vital Signs Vital signs: Vital Signs Temp 98.2 F 08/15/23 07:29 Pulse 90 08/15/23 08:24 Resp 18 08/15/23 12:09 BP 135/72 08/15/23 07:29 Pulse Ox 94 L 08/15/23 08:11 FiO2 Intake & Output 08/14/23 08/15/23 08/15/23 18:59 06:59 18:59 Output Total 50 Balance -50 Weight 124.738 kg Output: Urine 50 Other: Voiding Method External Catheter External Catheter - Labs CBC & Chem 7: 08/15/23 06:08 08/15/23 06:08 Labs: Abnormal Lab Results - Last 24 Hours (Table) 08/15/23 08/15/23 08/15/23 Range/Units 05:41 06:08 06:08 WBC 10.79 H (4.50-10.00) X 10*3/uL RBC 3.84 L (4.10-5.20) X 10*6/uL Hct 37.0 L (37.2-46.3) % Monocytes # 1.11 H (0.20-1.00) X 10*3/uL Eosinophils # 0 L (0.04-0.35) X 10*3/uL Potassium 3.1 L (3.5-5.5) mmol/L POC Glucose (mg/dL) 111 H (70-110) mg/dL Total Bilirubin 1.4 H (0.3-1.2) mg/dL Total Protein 5.9 L (6.2-8.2) g/dL Albumin 3.6 L (3.8-4.9) g/dL Albumin/Globulin Ratio 1.57 L (1.60-3.17) Ratio
--- NOTE | 2023-08-15 14:27 | PN ---
PROGRESS NOTE DATE OF SERVICE: 08/15/2023 SUBJECTIVE: This 67-year-old woman was admitted with small bowel obstruction, is on NG tube. The patient has less abdominal pain, feeling slightly better. Left lower lobe infiltrate was suspected on the chest x-ray. PAST MEDICAL HISTORY: Reviewed. REVIEW OF SYSTEMS: A 14-point review is negative except as mentioned earlier. CURRENT MEDICATIONS: Reviewed include heparin subcu, dose and rest of medications reviewed. PHYSICAL EXAMINATION: VITAL SIGNS: Pulse is 92, blood pressure 130/70, respirations 17. HEENT: Conjunctivae normal. NECK: No jugular venous distention. CARDIOVASCULAR: S1, S2. RESPIRATIONS: Diminished at the bases, few scattered rhonchi. ABDOMEN: Soft. NERVOUS SYSTEM: No focal deficits. LABORATORY DATA: Noted, potassium 3.1. ASSESSMENT: 1. Abdominal pain and distention with partial small bowel obstruction with transition point in the left lower quadrant. 2. Possible left lower lobe pneumonia. 3. Increased WBC. 4. Mild elevation of the bilirubin. 5. History of asthma. 6. Fibromyalgia. 7. Hypertension. 8. Multiple medical issues. RECOMMENDATIONS: Recommended to continue current management and treatment otherwise at this time I recommend empiric antibiotics. Follow the cultures. Infectious disease evaluation. I would also recommend potassium supplementation. Pain management, proton pump inhibitors, bronchodilators. Prognosis is guarded because of multiple complex medical conditions see orders for details, cut down the IV fluids. MMODL / IJN: [id number] /
[2023-08-15 14:38] LABS: Glucose,Whole Blood 98 mg/dL (70-110)
[2023-08-15] MEDS: POTASSIUM CHLORIDE ER 20 MEQ TAB.ER PO STA (15:43)
[2023-08-15] MEDS: MAGNESIUM SULFATE-D5W PMX 1 GM in DEXTROSE/WATER 1 100ML.BAG IVPB ONE (17:24)
--- NOTE | 2023-08-15 22:30 | P.CONS ---
History of Present Illness - Reason for Consult Consult date: 08/15/23 Left pneumonia Requesting physician: Didier Wright - Chief Complaint Abdominal pain and vomiting x 1 day - History of Present Illness Patient is a 67-year-old female with a past medical history significant for fibromyalgia hypertension osteoarthritis asthma presenting to the hospital for abdominal pain apparently the patient did have dinner last night around 7 PM and the patient started having increasing nausea and dry heaving and abdominal pain patient thought she ate too much of the peanuts patient was describing the pain to be sharp moderate to severe intensity with associated nausea and vomiting denies having any diarrhea patient denies having any fever or any chills no headache or URI symptoms no chest pain shortness of breath occasional cough and no urinary symptoms on presentation to the hospital the patient was afebrile and no fever have recorded subsequently patient was mildly tachycardic but not hypotensive or hypoxic and no need for supplemental oxygen therapy patient did have white count of 12.5 with a left shift kidney function has been normal liver enzymes mildly elevated amylase lipase was normal, UA has been negative influenza RSV COVID testing was negative patient did have a CT abdominal pelvis moderate small bowel distention with transition zone in the left lower quadrant concerning for at least partial small bowel obstruction lung bases with bibasilar infiltrate chest x-ray repeated yesterday afternoon concern for left lower lobe infiltrate correlate for atelectasis or pneumonia patient is currently on ceftriaxone infectious disease was consulted for further management of antibiotic therapy Review of Systems Positive point and negatives has been mentioned in the HPI, complete review of systems was performed and all other systems are negative Past Medical History Past Medical History: Asthma, Fibromyalgia, Hypertension, Osteoarthritis (OA) Additional Past Medical History / Comment(s): joint pain History of Any Multi-Drug Resistant Organisms: None Reported Past Surgical History: Appendectomy, Cholecystectomy, Orthopedic Surgery, Tubal Ligation Additional Past Surgical History / Comment(s): eye surgery Past Anesthesia/Blood Transfusion Reactions: No Reported Reaction Past Psychological History: Anxiety Smoking Status: Never smoker Past Alcohol Use History: None Reported Past Drug Use History: None Reported Medications and Allergies Home Medications Medication Instructions Recorded Confirmed Type amLODIPine [Norvasc] 10 mg PO HS 01/17/18 08/14/23 History Metoprolol Tartrate [Lopressor] 50 mg PO HS 10/23/18 08/14/23 History Acetaminophen-Codeine 300-30mg 1 tab PO Q6H PRN 12/23/20 08/14/23 History [Tylenol w/codeine #3] Omeprazole 20 mg PO HS 12/23/20 08/14/23 History Albuterol Sulfate [Albuterol 2 puff PO RT-Q6H PRN 08/14/23 08/14/23 History Sulfate Hfa] Levothyroxine Sodium [Synthroid] 50 mcg PO HS 08/14/23 08/14/23 History Triamterene/Hydrochlorothiazid 1 tab PO HS 08/14/23 08/14/23 History [Triamterene-Hctz 37.5-25 mg Tb] Benzocaine [place] [Hurricaine [place]] 1 spray MUCOUS MEM QID PRN each 08/17/23 Rx Budesonide-Formot 160-4.5 Mcg 2 puff INHALATION BID #10.2 gm 08/17/23 Rx [Symbicort 160-4.5 Mcg Inhaler] Ipratropium-Albuterol Nebulize 3 ml INHALATION RT-TID #90 each 08/17/23 Rx [Duoneb 0.5 mg-3 mg/3 ml Soln] Ipratropium-Albuterol Nebulize 3 ml INHALATION RT-TID PRN each 08/17/23 Rx [Duoneb 0.5 mg-3 mg/3 ml Soln] Pantoprazole [Protonix] 40 mg PO BID #60 tab 08/17/23 Rx Simethicone 40 mg/0.6 ml Drops 40 mg PO QID #5 ml 08/17/23 Rx [Mylicon Drops] cefUROXime axetiL [Ceftin] 500 mg PO BID 4 Days #8 tab 08/17/23 Rx predniSONE 10 mg PO DIRECTED #30 tab 08/17/23 Rx Allergies Allergy/AdvReac Type Severity Reaction Status Date / Time Penicillins Allergy Unknown Verified 08/14/23 07:37 Childhood Physical Exam Vitals: Vital Signs Temp Pulse Pulse Resp BP BP Pulse Ox 08/15/23 16:44 94 08/15/23 16:34 88 08/15/23 15:17 98.3 F 104 H 19 121/68 90 L 08/15/23 12:09 18 08/15/23 08:24 90 08/15/23 08:11 91 94 L 08/15/23 07:29 98.2 F 92 17 135/72 93 L 08/15/23 01:37 92 08/15/23 01:31 90 08/15/23 00:51 98.9 F 92 20 119/74 92 L 08/15/23 00:00 91 18 131/87 92 L 08/14/23 22:44 87 18 140/78 95 08/14/23 22:00 135/74 08/14/23 21:11 108 H 08/14/23 20:58 100 08/14/23 20:00 128/84 08/14/23 19:50 97.9 F 101 H 17 127/79 95 08/14/23 18:10 97.8 F 96 16 130/79 92 L 08/14/23 17:25 98 16 141/82 93 L Intake and Output 08/15/23 08/15/23 08/15/23 06:59 14:59 22:59 Output Total 50 Balance -50 Output: Urine 50 Other: Voiding Method External Catheter External Catheter Weight 124.738 kg GENERAL DESCRIPTION: Elderly female lying in bed, no distress. No tachypnea or accessory muscle of respiration use. HEENT: Shows Pallor , no scleral icterus. Oral mucous membrane is dry. No pharyngeal erythema or thrush NECK: Trachea central, no thyromegaly. LUNGS: Unlabored breathing. Decreased breath sound at the base HEART: S1, S2, regular rate and rhythm. No loud murmur ABDOMEN: Soft, no tenderness , guarding or rigidity, no organomegaly EXTREMITIES: No edema of feet. SKIN: No rash, no masses palpable. NEUROLOGICAL: The patient is awake, alert, oriented x3, mood and affect normal. Results CBC & Chem 7: 08/16/23 08:59 08/16/23 08:59 Labs: Abnormal Lab Results - Last 24 Hours (Table) 08/15/23 08/15/23 08/15/23 Range/Units 05:41 06:08 06:08 WBC 10.79 H (4.50-10.00) X 10*3/uL RBC 3.84 L (4.10-5.20) X 10*6/uL Hct 37.0 L (37.2-46.3) % Monocytes # 1.11 H (0.20-1.00) X 10*3/uL Eosinophils # 0 L (0.04-0.35) X 10*3/uL Potassium 3.1 L (3.5-5.5) mmol/L POC Glucose (mg/dL) 111 H (70-110) mg/dL Total Bilirubin 1.4 H (0.3-1.2) mg/dL Total Protein 5.9 L (6.2-8.2) g/dL Albumin 3.6 L (3.8-4.9) g/dL Albumin/Globulin Ratio 1.57 L (1.60-3.17) Ratio Assessment and Plan (1) Abnormal CT of the abdomen Status: Acute Code(s): R93.5 - ABN FINDINGS ON DX IMAGING OF ABD REGIONS, INC RETROPERITON SNOMED Code(s): 43983070154732536 (2) Partial small bowel obstruction Status: Acute Code(s): K56.600 - PARTIAL INTESTINAL OBSTRUCTION, UNSPECIFIED TO CAUSE SNOMED Code(s): 595727562 (3) Penicillin allergy Status: Acute Code(s): Z88.0 - ALLERGY STATUS TO PENICILLIN SNOMED Code(s): 15902507 (4) Pneumonia Status: Acute Code(s): J18.9 - PNEUMONIA, UNSPECIFIED ORGANISM SNOMED Code(s): 245419034 Plan: 1patient presented to hospital with abdominal pain nausea and vomiting has been diagnosed with a partial small bowel obstruction patient also have abnormal ches t x-ray and CT concerning for left lower lobe infiltrate/atelectasis and concern for possible pneumonia, however patient predominantly GI symptoms and very mild cough 2-penicillin allergy 3-we will obtain a CRP procalcitonin and sputum if possible 4-May continue empiric Rocephin while waiting for the workup to be completed We will follow on clinical condition and cultures to further adjust medication if needed Thank you for this consultation we will follow the patient along with you Dictation was produced using [employer] dictation software. please excuse any grammatical, word or spelling errors. Time with Patient: Greater than 30
[2023-08-16] MEDS: BUTALB/APAP/CAFF 50-325-40MG TAB PO PRN (04:25)
[2023-08-16] MEDS: TRIAMTERENE-HCTZ 37.5-25MG 1 EACH CAP PO SCH (08:52)
[2023-08-16 09:59] LABS: African American GFR (CKD) 90 (>60 ml/min/1.73 sqM); Anion Gap 6 mmol/L; Blood Urea Nitrogen 16 mg/dL (7-17); C Reactive Protein 2.5 mg/dL (<1.0); Calcium 8.4 mg/dL (8.4-10.2); Carbon Dioxide 29 mmol/L (22-30); Chloride 102 mmol/L (98-107); Glucose 122 mg/dL (74-99); Magnesium 1.5 mg/dL (1.6-2.3); Non-African American GFR(CKD) 78 (>60 ml/min/1.73 sqM); Potassium 3.3 mmol/L (3.5-5.1); Sodium 137 mmol/L (137-145)
[2023-08-16] MEDS ORDERED: IPRATROPIUM-ALBUTEROL 3 ML NEB INHALATION PRN (13:44)
[2023-08-16] MEDS ORDERED: Potassium Replacement Protocol 1 EACH MISC MISCELLANE PRN (13:45)
[2023-08-16] MEDS ORDERED: Magnesium Replacement Protocol 1 EACH MISC MISCELLANE PRN (13:45)
[2023-08-16] MEDS: POTASSIUM CHLORIDE ER 20 MEQ TAB.ER PO SCH (14:07)
[2023-08-16] MEDS: FUROSEMIDE 10 MG/ML 4 ML VIAL IV SCH (14:07)
[2023-08-16] MEDS: MAGNESIUM SULFATE-D5W PMX 1 GM in DEXTROSE/WATER 1 100ML.BAG IVPB SCH (14:10)
--- NOTE | 2023-08-16 14:35 | XR ---
EXAMINATION TYPE: XR chest 1V portable DATE OF EXAM: 08/16/2023 COMPARISON: 08/14/2023 INDICATION: Short of breath TECHNIQUE: Single frontal view of the chest is obtained. FINDINGS: The heart size is normal. The pulmonary vasculature is normal. The lungs are clear. IMPRESSION: 1. No acute pulmonary process.
--- NOTE | 2023-08-16 15:15 | P.PN ---
Subjective Progress Note Date: 08/16/23 Principal diagnosis: Reason for follow-up is abnormal CT with bibasilar infiltrate concerning for pneumonia Patient is a 67-year-old female with a past medical history s ignificant for fibromyalgia hypertension osteoarthritis asthma presenting to the hospital for abdominal pain and vomiting after dinner CT abdominal pelvis with moderate small bowel distention and evidence of bibasilar infiltrate concerning for possible pneumonia. On today's visit that is 08/16/2023, patient has been afebrile, patient is breathing comfortably and is currently on room air, patient denies having any worsening cough no chest pain shortness of breath, patient denies nausea vomiting or diarrhea and no abdominal pain, feeling slightly better today. Patient white count is down to 10.79 as of yesterday no CBC was done today creatinine 0.80 CRP is 2.5 Objective - Vital Signs Vital signs: Vital Signs Temp 98.4 F 08/16/23 13:00 Pulse 102 H 08/16/23 13:21 Resp 20 08/16/23 13:21 BP 142/76 08/16/23 13:00 Pulse Ox 89 L 08/16/23 13:00 FiO2 Intake & Output 08/15/23 08/16/23 08/16/23 18:59 06:59 18:59 Intake Total 350 1350 250 Output Total 400 150 750 Balance -50 1200 -500 Intake: Oral 350 1350 250 Output: Urine 400 150 750 Other: Voiding Method External Catheter External Catheter Toilet # Bowel Movements 1 - Exam GENERAL DESCRIPTION: An elderly female lying in bed in no distress RESPIRATORY SYSTEM: Unlabored breathing , decreased breath sounds at bases HEART: S1 S2 regular rate and rhythm , ABDOMEN: Soft , no tenderness EXTREMITIES: No edema feet - Labs CBC & Chem 7: 08/15/23 06:08 08/16/23 08:59 Labs: Abnormal Lab Results - Last 24 Hours (Table) 08/16/23 Range/Units 08:59 Potassium 3.3 L (3.5-5.1) mmol/L Glucose 122 H (74-99) mg/dL Magnesium 1.5 L (1.6-2.3) mg/dL C-Reactive Protein 2.5 H (<1.0) mg/dL Assessment and Plan (1) Abnormal CT of the abdomen Current Visit: Yes Status: Acute Code(s): R93.5 - ABN FINDINGS ON DX IMAGING OF ABD REGIONS, INC RETROPERITON SNOMED Code(s): 22567879405888671 (2) Pneumonia Current Visit: Yes Status: Acute Code(s): J18.9 - PNEUMONIA, UNSPECIFIED ORGANISM SNOMED Code(s): 696881644 (3) Penicillin allergy Current Visit: Yes Status: Acute Code(s): Z88.0 - ALLERGY STATUS TO PENICILLIN SNOMED Code(s): 20046699 (4) Partial small bowel obstruction Current Visit: Yes Status: Acute Code(s): K56.600 - PARTIAL INTESTINAL OBSTRUCTION, UNSPECIFIED TO CAUSE SNOMED Code(s): 250987639 Plan: 1patient presented to hospital with abdominal pain nausea and vomiting has been diagnosed with a partial small bowel obstruction patient also have abnormal chest x-ray and CT concerning for left lower lobe infiltrate/atelectasis and concern for possible pneumonia, however patient predominantly GI symptoms and very mild cough 2-penicillin allergy 3-CRP mildly elevated procalcitonin pending sputum not collected 4-patient to continue with Rocephin while waiting for the workup to be completed Dictation was produced using [employer] dictation software. please excuse any grammatical, word or spelling errors. Time with Patient: Less than 30
--- NOTE | 2023-08-16 15:38 | P.PN ---
Subjective Progress Note Date: 08/16/23 CHIEF COMPLAINT: Partial small bowel obstruction HISTORY OF PRESENT ILLNESS: Patient having bowel movements and flatus. Has no abdominal pain. She tolerated the full liquid diet. She does complain of some bilateral leg swelling and reports that medicine service is restarting her water pill. They have started her on IV Lasix. Afebrile. Potassium 3.[address] Ortiz following in regards to possible pneumonia. Medicine service replacing magnesium and potassium PHYSICAL EXAM: VITAL SIGNS: Reviewed GENERAL: Well-developed in no acute distress. HEENT: No sclera icterus. Extraocular movements grossly intact. Moist buccal mucosa. Head is atraumatic, normocephalic. Hears conversational speech. No nasal drainage. NECK: Supple without lymphadenopathy. CHEST: Non-labored respirations and equal bilateral excursions. CARDIOVASCULAR: Palpable 2+ radial pulses. ABDOMEN: Soft. Nondistended. Nontender. MUSCULOSKELETAL: No clubbing or cyanosis. NEUROLOGIC: No focal or lateralizing signs. Cranial nerves II through XII grossly intact. PSYCH: Appropriate affect. Alert and oriented to person, place and time. SKIN: Well perfused. Good skin turgor. ASSESSMENT: 1. Partial small bowel obstruction 2. Prior history of abdominal surgery 3. Hypomagnesemia 4. Hypokalemia PLAN: -Advance diet to low fiber -Encourage patient to ambulate -Continue to correct electrolytes -Patient can be discharged from surgical standpoint when medically cleared Physician Safety And Health Consultant note has been reviewed by physician. Signing provider agrees with the documented findings, assessment, and plan of care. Objective - Vital Signs Vital signs: Vital Signs Temp 98.4 F 08/16/23 13:00 Pulse 102 H 08/16/23 13:21 Resp 20 08/16/23 13:21 BP 142/76 08/16/23 13:00 Pulse Ox 89 L 08/16/23 13:00 FiO2 Intake & Output 08/15/23 08/16/23 08/16/23 18:59 06:59 18:59 Intake Total 350 1350 250 Output Total 400 150 750 Balance -50 1200 -500 Intake: Oral 350 1350 250 Output: Urine 400 150 750 Other: Voiding Method External Catheter External Catheter Toilet # Bowel Movements 1 - Labs CBC & Chem 7: 08/15/23 06:08 08/16/23 08:59 Labs: Abnormal Lab Results - Last 24 Hours (Table) 08/16/23 Range/Units 08:59 Potassium 3.3 L (3.5-5.1) mmol/L Glucose 122 H (74-99) mg/dL Magnesium 1.5 L (1.6-2.3) mg/dL C-Reactive Protein 2.5 H (<1.0) mg/dL
[2023-08-16 16:14] LABS: Basophils # (A) 0.06 X 10*3/uL (0.00-0.10); Basophils % (A) 0.7 %; Eosinophils # (A) 0.04 X 10*3/uL (0.04-0.35); Eosinophils % (A) 0.4 %; HCT 38.1 % (37.2-46.3); HGB 12.2 g/dL (12.0-15.0); Lymphocytes # (A) 3.66 X 10*3/uL (0.90-5.00); Lymphocytes % (A) 40.3 %; MCH 31.6 pg (27.0-32.0); MCV 98.7 FL (80.0-97.0); Mean Platelet Volume 11.4 FL (9.5-12.2); Monocytes # (A) 0.91 X 10*3/uL (0.20-1.00); NRBC Per 100 WBC 0 X 10*3/uL (0.00-0.01); Neutrophils # (A) 4.38 X 10*3/uL (1.80-7.70); Neutrophils % (A) 48.2 %; Platelet Count 269 X 10*3/uL (140-440); RBC 3.86 X 10*6/uL (4.10-5.20); RDW 13.6 % (11.5-14.5); WBC 9.09 X 10*3/uL (4.50-10.00)
[2023-08-16] MEDS: methylPREDNISolone SOD SUCCI 40 MG/ML 1 ML VIAL IV SCH (16:45)
[2023-08-16] MEDS: IPRATROPIUM-ALBUTEROL 3 ML NEB INHALATION SCH (20:50)
[2023-08-17 12:13] VITALS: RESP 18
[2023-08-17] MEDS: ALPRAZolam 0.25 MG TAB PO STA (14:39)
[2023-08-17 15:03] VITALS: BP 145/75; PULSE 109; TEMP 98.5
--- NOTE | 2023-08-17 15:55 | P.PN ---
Subjective Progress Note Date: 08/17/23 Principal diagnosis: Reason for follow-up is abnormal CT with bibasilar infiltrate concerning for pneumonia Patient is a 67-year-old female with a past medical history s ignificant for fibromyalgia hypertension osteoarthritis asthma presenting to the hospital for abdominal pain and vomiting after dinner CT abdominal pelvis with moderate small bowel distention and evidence of bibasilar infiltrate concerning for possible pneumonia. On today's visit that is 08/17/2023,the patient denies any fever or any chills, patient is breathing comfortably on room air, the patient denies chest pain shortness of breath and cough has decreased in intensity not bring up any sputu m, patient denies abdominal pain, no nausea vomiting or diarrhea. Patient white count normalized to 9.09, creatinine 0.80 Objective - Vital Signs Vital signs: Vital Signs Temp 98.1 F 08/17/23 07:22 Pulse 96 08/17/23 08:22 Resp 20 08/17/23 07:22 BP 168/72 08/17/23 07:22 Pulse Ox 95 08/17/23 08:08 FiO2 Intake & Output 08/16/23 08/17/23 08/17/23 18:59 06:59 18:59 Intake Total 250 Output Total 750 900 Balance -500 -900 Intake: Oral 250 Output: Urine 750 900 Other: Voiding Method Toilet Toilet Diaper # Voids 1 1 # Bowel Movements 1 - Exam GENERAL DESCRIPTION: An elderly female lying in bed in no distress RESPIRATORY SYSTEM: Unlabored breathing , decreased breath sounds at bases HEART: S1 S2 regular rate and rhythm , ABDOMEN: Soft , no tenderness EXTREMITIES: No edema feet - Labs CBC & Chem 7: 08/16/23 08:59 08/16/23 08:59 Labs: Abnormal Lab Results - Last 24 Hours (Table) 08/16/23 08/16/23 Range/Units 08:59 08:59 RBC 3.86 L (4.10-5.20) X 10*6/uL MCV 98.7 H (80.0-97.0) [place] Potassium 3.3 L (3.5-5.1) mmol/L Glucose 122 H (74-99) mg/dL Magnesium 1.5 L (1.6-2.3) mg/dL C-Reactive Protein 2.5 H (<1.0) mg/dL Microbiology - Last 24 Hours (Table) 08/15/23 14:07 Blood Culture - Preliminary Blood Assessment and Plan (1) Abnormal CT of the abdomen Current Visit: Yes Status: Acute Code(s): R93.5 - ABN FINDINGS ON DX IMAGING OF ABD REGIONS, INC RETROPERITON SNOMED Code(s): 84608300007804106 (2) Pneumonia Current Visit: Yes Status: Acute Code(s): J18.9 - PNEUMONIA, UNSPECIFIED ORGANISM SNOMED Code(s): 910811307 (3) Penicillin allergy Current Visit: Yes Status: Acute Code(s): Z88.0 - ALLERGY STATUS TO PENICILLIN SNOMED Code(s): 83955455 (4) Partial small bowel obstruction Current Visit: Yes Status: Acute Code(s): K56.600 - PARTIAL INTESTINAL OBSTRUCTION, UNSPECIFIED TO CAUSE SNOMED Code(s): 252179498 Plan: 1patient presented to hospital with abdominal pain nausea and vomiting has been diagnosed with a partial small bowel obstruction patient also have abnormal chest x-ray and CT concerning for left lower lobe infiltrate/atelectasis and concern for possible pneumonia, however patient predominantly GI symptoms and very mild cough 2-penicillin allergy 3-CRP mildly elevated procalcitonin normal sputum not collected 4-patient has shown clinical improvement with Rocephin which will be continued and monitor clinical course closely Dictation was produced using [employer] dictation software. please excuse any grammatical, word or spelling errors. Time with Patient: Less than 30
[2023-08-17] MEDS ORDERED: PANTOPRAZOLE 40 MG TABLET PO SCH (21:00)
--- NOTE | 2023-08-21 16:08 | CDI ---
Documentation Clarification Form Date: 08/21/2023 04:05:16 PM From: Carolyn Woodruff RN, CCDS Phone: [phone] Admit Date: 08/14/2023 04:21:00 AM Patient Name: Anh Lake V Visit Number: [id number] Discharge Date: 08/17/2023 04:04:00 PM ATTENTION: The Clinical Documentation Specialists (CDI) and [facility] Coding Staff appreciate your assistance in clarifying documentation. Please respond to the clarification below the line at the bottom and electronically sign. The CDI & [facility] Coding staff will review the response and follow-up if needed. Please note: Queries are made part of the Legal Health Record. If you have any questions, please contact the author of this message via ITS. Dr. Didier Wright Your patient had low oxygen saturations and was given supplemental oxygen. Based on this information and the findings below, is there an additional diagnosis that is clinically appropriate for this patient? History/Risk Factors: Asthma, fibromyalgia, HTN and OA. Presented with abdominal pain and nausea. Admitted with bowel obstruction. Clinical Indicators: 08/13 Vital signs: HR 90-108, RR 16-22 08/13 pox 88-97%; 08/14 pox 90-94%; 08/15 pox 89-94% Lung/Breathing assessment: SOB with activity on 08/14 and 08/16 08/16 Nursing note: "patients heart rate went up to 130s when up to bathroom per teleprinter installer. sustained in the 120s for about 20 minutes. pt c/o sob. notified [facility]." 08/16 ID: "Respiratory system: Unlabored breathing, decreased breath sounds at bases." Treatment: IV Lasix 40mg Q12H 08/15-08/16; IV Solumedrol 40mg Q8H 08/15-08/16 Breathing treatment: Albuterol 2.5mg Q6H 08/13-08/15; Albuterol/Atrovent TID O2: 2-4LNC Is there an additional diagnosis that is clinically appropriate for this patient? [x ] Acute Hypoxic Respiratory Failure secondary to volume overload [ ] Acute Respiratory Insufficiency [ ] No additional diagnosis/not clinically significant [ ] Other Diagnosis, please specify [ ] Unable to determine MTDD
--- NOTE | 2023-08-23 06:40 | P.DS ---
Providers Date of admission: 08/14/23 04:21 Expected date of discharge: 08/17/23 Attending physician: Holland Ramon MD Consults: 08/15/23 13:35 Consult Physician Routine Consulting Provider: Radha Ortiz Consult Reason/Comments: left pneumonia Do you want consulting provider notified?: Yes Primary care physician: Danyel Washburn Hospital Course: Final diagnosis Abdominal pain and distention with partial small bowel obstruction with transition point at the left lower quadrant, improved Acute hypoxic respiratory failure, multifactorial, likely secondary to volume overload History of eosinophilic asthma, not in exacerbation Leukocytosis likely secondary to assessment #1, improved Fibromyalgia history Hypertension history Morbid obesity with a BMI of 43.1 GI prophylaxis DVT prophylaxis Full code Discharge disposition Patient is being discharged in a stable condition with guarded prognosis to home. Patient will follow-up with in the outpatient setting upon discharge. Patient is to continue with slowly advancing diet as tolerated and outpatient follow-up with general surgery as scheduled. Total time taken is greater than 35 minutes. Hospital course This is a 67-year-old female who was recently admitted with severe abdominal pain with nausea and vomiting with concerns of ileus versus partial small bowel obstruction. Patient being closely monitored with general surgery following maintained on NG tube and bowel rest. Patient having some improvement and having gas with bowel movements and NG tube was removed being monitored by general surgery. Patient has been cleared by general surgery for outpatient follow-up. Patient was having some increased shortness of breath and generalized edema likely secondary to volume overload. Patient does have history of eosinophilic asthma and uses inhalers outpatient. Patient has been weaned off oxygen and tolerating room air with oxygen saturations above 90%. Patient will be given a few doses of oral Lasix on discharge for generalized edema. Please refer to other consultation notes for further HPI. Currently no reports of chest pain, shortness of breath, or palpitations. Patient is afebrile. No reports of nausea or vomiting and patient is tolerating diet. Patient will be discharged home today. Guarded prognosis. Physical exam: Gen: This is a 67-year-old female who is awake, alert and oriented x 3, well- developed, well-nourished, morbidly obese HEENT: Head is atraumatic, normocephalic. Pupils equal, round. Sclerae is anicteric. NECK: Supple. No JVD. No lymphadenopathy. No thyromegaly. LUNGS: Diminished breath sounds bilaterally otherwise clear to auscultation. No wheezes or rhonchi. No intercostal retractions. HEART: S1, S2 are muffled ABDOMEN: Soft. Obese. Bowel sounds are present. No masses. No tenderness. EXTREMITIES: No pedal edema. No calf tenderness. Mild generalized edema noted to bilateral lower extremities, nonpitting NEUROLOGICAL: Patient is awake, alert and oriented x3. Cranial nerves 2 through 12 are grossly intact. Please refer to medication reconciliation sheet for a list of medications. The impression and plan of care has been dictated by Mary Ann Gonzalez, Nurse Practitioner as directed. Dr. Kyle MD I have performed a history and examination and MDM of this patient, discussed the same with the dictator, and agree with the dictator's assessment and plan as written ,documented as a scribe. Based on total visit time, I have performed more than 50% of the visit. Patient Condition at Discharge: Good Plan - Discharge Summary Discharge Rx Participant: No New Discharge Prescriptions: New cefUROXime axetiL [Ceftin] 500 mg PO BID 4 Days #8 tab Ipratropium-Albuterol Nebulize [Duoneb 0.5 mg-3 mg/3 ml Soln] 3 ml INHALATION RT-TID PRN each PRN Reason: Shortness Of Breath Or Wheezing Simethicone 40 mg/0.6 ml Drops [Mylicon Drops] 40 mg PO QID #5 ml predniSONE 10 mg PO DIRECTED #30 tab Pantoprazole [Protonix] 40 mg PO BID #60 tab Budesonide-Formot 160-4.5 Mcg [Symbicort 160-4.5 Mcg Inhaler] 2 puff INHALATION BID #10.2 gm Ipratropium-Albuterol Nebulize [Duoneb 0.5 mg-3 mg/3 ml Soln] 3 ml INHALATION RT-TID #90 each Benzocaine [place] [Hurricaine [place]] 1 spray MUCOUS MEM QID PRN each PRN Reason: Mouth Irritation Continue amLODIPine [Norvasc] 10 mg PO HS Metoprolol Tartrate [Lopressor] 50 mg PO HS Omeprazole 20 mg PO HS Acetaminophen-Codeine 300-30mg [Tylenol w/codeine #3] 1 tab PO Q6H PRN PRN Reason: Pain Levothyroxine Sodium [Synthroid] 50 mcg PO HS Triamterene/Hydrochlorothiazid [Triamterene-Hctz 37.5-25 mg Tb] 1 tab PO HS Albuterol Sulfate [Albuterol Sulfate Hfa] 2 puff PO RT-Q6H PRN PRN Reason: Shortness Of Breath Discharge Medication List amLODIPine [Norvasc] 10 mg PO HS 01/17/18 [History] Metoprolol Tartrate [Lopressor] 50 mg PO HS 10/23/18 [History] Acetaminophen-Codeine 300-30mg [Tylenol w/codeine #3] 1 tab PO Q6H PRN 12/23/20 [History] Omeprazole 20 mg PO HS 12/23/20 [History] Albuterol Sulfate [Albuterol Sulfate Hfa] 2 puff PO RT-Q6H PRN 08/14/23 [History] Levothyroxine Sodium [Synthroid] 50 mcg PO HS 08/14/23 [History] Triamterene/Hydrochlorothiazid [Triamterene-Hctz 37.5-25 mg Tb] 1 tab PO HS 08/14/23 [History] Benzocaine [place] [Hurricaine [place]] 1 spray MUCOUS MEM QID PRN each 08/17/23 [Rx] Budesonide-Formot 160-4.5 Mcg [Symbicort 160-4.5 Mcg Inhaler] 2 puff INHALATION BID #10.2 gm 08/17/23 [Rx] Ipratropium-Albuterol Nebulize [Duoneb 0.5 mg-3 mg/3 ml Soln] 3 ml INHALATION RT-TID #90 each 08/17/23 [Rx] Ipratropium-Albuterol Nebulize [Duoneb 0.5 mg-3 mg/3 ml Soln] 3 ml INHALATION RT-TID PRN each 08/17/23 [Rx] Pantoprazole [Protonix] 40 mg PO BID #60 tab 08/17/23 [Rx] Simethicone 40 mg/0.6 ml Drops [Mylicon Drops] 40 mg PO QID #5 ml 08/17/23 [Rx] cefUROXime axetiL [Ceftin] 500 mg PO BID 4 Days #8 tab 08/17/23 [Rx] predniSONE 10 mg PO DIRECTED #30 tab 08/17/23 [Rx] Follow up Appointment(s)/Referral(s): Antoine Rashid MD [STAFF PHYSICIAN] - 1 Week (Office is not answering at time of discharge. Please call for appointment.) Danyel Washburn [Primary Care Provider] - 1-2 days (Office is closed at time of discharge. Please call for follow-up appointment.) Activity/Diet/Wound Care/Special Instructions: Activity limited until follow-up Follow-up with primary care provider on discharge Follow-up with pulmonary outpatient in 1 week Continue taking medications as prescribed Continue with breathing treatments Monitor fluid intake and recommend 45 ounces throughout the whole day for the next few days elevate lower extremities while at rest Discharge Disposition: HOME SELF-CARE
== END 2023-08-17 16:04 | disposition home or self-care (01) | DRG 388 ==
LOC: EC 23:14 → 4SSUR 08-14 04:21
PROVIDERS: ADMIT Internal Medicine; ATTEND Internal Medicine
PROC: 0D9670Z Drainage of Stomach with Drainage Device, Via Natural or Artificial Opening (ICD-10-PCS; principal; 2023-08-14)
DX: K56.600 Partial intestinal obstruction, unspecified as to cause (principal); J96.01 Acute respiratory failure with hypoxia; J82.83 Eosinophilic asthma; Z68.41 Body mass index [BMI] 40.0-44.9, adult; E87.70 Fluid overload, unspecified; E66.01 Morbid (severe) obesity due to excess calories; E83.42 Hypomagnesemia; E87.6 Hypokalemia; I10 Essential (primary) hypertension; R93.5 Abnormal findings on diagnostic imaging of other abdominal regions, including retroperitoneum; M79.7 Fibromyalgia; Z79.51 Long term (current) use of inhaled steroids; Z79.890 Hormone replacement therapy; Z79.899 Other long term (current) drug therapy; Z90.49 Acquired absence of other specified parts of digestive tract; Z88.0 Allergy status to penicillin; Z87.19 Personal history of other diseases of the digestive system
CPT/HCPCS: 36415; 71045; 74019; 74177; 80048; 80053; 81003; 82150; 83690; 83735; 84145; 84484; 85025; 85610; 85730; 86140; 87040; 87636; 93005; 94640; 94760; 96365; 96366; 96367; 96375; 96376; 99285